=== PATIENT | female | born 1975 | race Caucasian/White ===

== ENCOUNTER 2018-08-01 21:31 | Observation (INO) | payer OTHER, SELFPAY ==
[2018-08-01 22:36] LABS: Absolute Lymphocytes (CBC) 0.9 K/uL (0.7-4.9); Basophils % 0.5 % (0-1.3); Eosinophils % 2.9 % (0-4.4); Hematocrit 41.4 % (36.0-45.0); Lymphocytes % 13.1 % (15.3-44.8); Monocytes % 13.1 % (3.3-12.3); RBC Red Blood Cell Count 4.54 M/uL (3.86-4.86)
[2018-08-01] MEDS ORDERED: NA CHLORIDE 0.9% 1,000 ML ONE (22:37)
[2018-08-01 22:56] LABS: ALT/SGPT 27 U/L (12-78); AST/SGOT 22 U/L (15-37); Albumin 3.6 g/dL (3.4-5.0); Alkaline Phosphatase 69 U/L (45-117); BUN Blood Urea Nitrogen 14 mg/dL (7-18); Bicarbonate 26 mmol/L (21-32); Bilirubin Direct < 0.1 mg/dL (0-0.2); Bilirubin Total 0.2 mg/dL (0.2-1.0); Glucose Level 99 mg/dL (74-106); Magnesium 1.9 mg/dL (1.8-2.4); NT PRO-BNP 70 pg/mL (<125); Potassium 3.8 mmol/L (3.5-5.1); Protein, Total 7.1 g/dL (6.4-8.2); Sodium Level 138 mmol/L (136-145); Troponin (Emerg Dept Use Only) < 0.02 ng/mL (0.0-0.045)
--- NOTE | 2018-08-01 23:37 | ER ---
Nurse's Notes [facility] Name: Lilly Glass Age: 42 yrs Sex: Female : 1975 Arrival Date: 08/01/2018 Time: 21:35 Bed 26 Private MD: Diagnosis: Dizziness and giddiness;Chest pain, unspecified;Essential (primary) hypertension Presentation: 08/01 21:35 Presenting complaint: Patient states: Reports dizziness, earache, sore throat, nasal aj congestion, and hot flashes that started yesterday. Started Z pack 2 days ago. Care prior to arrival: None. 21:35 Method Of Arrival: Ambulatory aj 21:35 Acuity: THEO 3 aj 21:45 Risk Assessment: Do you want to hurt yourself or someone else? Patient reports no ca1 desire to harm self or others. 21:45 Transition of care: patient was not received from another setting of care. Onset of ca1 symptoms was August 01, 2018. Initial Sepsis Screen: Does the patient meet any 2 criteria? No. Patient's initial sepsis screen is negative. Does the patient have a suspected source of infection? No. Patient's initial sepsis screen is negative. Triage Assessment: 21:37 General: Appears in no apparent distress. comfortable, Behavior is calm, cooperative, aj appropriate for age. Pain: Denies pain. EENT: Reports nasal congestion nasal discharge. Neuro: Level of Consciousness is awake, alert, obeys commands, Oriented to person, place, time, situation, Appropriate for age Gait is steady. Respiratory: Reports shortness of breath. Derm: Skin is intact, is healthy with good turgor, Skin is pink, warm \T\ dry. normal. 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 - Social history:: Smoking status: Patient/guardian denies using tobacco. - Family history:: not pertinent. - Ebola Screening: : Patient negative for fever greater than or equal to 101.5 degrees Fahrenheit, and additional compatible Ebola Virus Disease symptoms Patient denies exposure to infectious person Patient denies travel to an Ebola-affected area in the 21 days before illness onset. Screenin:40 Abuse screen: Denies threats or abuse. Denies injuries from another. Nutritional mg2 screening: No deficits noted. Tuberculosis screening: No symptoms or risk factors identified. Fall Risk IV access (20 points). Assessment: 22:41 General: Appears in no apparent distress. comfortable, Behavior is calm, cooperative. mg2 Pain: Denies pain. Neuro: Level of Consciousness is awake, alert, obeys commands, Oriented to person, place, time, situation. Neuro: Reports dizziness. Cardiovascular: Capillary refill < 3 seconds Patient's skin is warm and dry. Respiratory: Airway is patent Respiratory effort is even, unlabored, Respiratory pattern is regular, symmetrical. GI: No signs and/or symptoms were reported involving the gastrointestinal system. : No signs and/or symptoms were reported regarding the genitourinary system. EENT: No signs and/or symptoms were reported regarding the EENT system. Derm: Skin is intact, is healthy with good turgor, Skin is pink, warm \T\ dry. normal. Musculoskeletal: Circulation, motion, and sensation intact. Capillary refill < 3 seconds. 08/02 00:45 Reassessment: dr hernandez at bedside examining the patient. mg2 Vital Signs: 08/01 21:37 BP 157 / 98; Pulse 100; Resp 20; Temp 98.4; Pulse Ox 100% on R/A; Weight 61.23 kg; aj Height 5 ft. 2 in. (157.48 cm); 22:40 BP 142 / 82; Pulse 79; Resp 17 S; Pulse Ox 98% on R/A; ca1 08/02 00:14 BP 178 / 95; Pulse 85; Resp 14; Pulse Ox 99% on R/A; ca1 00:52 BP 157 / 85; Pulse 75; Resp 18; Temp 98.5; Pulse Ox 98% on R/A; Pain 0/10; mg2 01:09 BP 146 / 76; Pulse 89; Resp 18; Temp 98.2; Pulse Ox 100% on R/A; Pain 0/10; mg2 08/01 21:37 Body Mass Index 24.69 (61.23 kg, 157.48 cm) aj ED Course: 08/01 21:35 Patient arrived in ED. aj 21:36 Triage completed. aj 21:37 Arm band placed on left wrist. Patient placed in an exam room. aj 21:45 Patient has correct armband on for positive identification. Placed in gown. Bed in low ca1 position. Call light in reach. Side rails up X 1. operations controller on. Pulse ox on. NIBP on. 21:45 Warm blanket given. ca1 21:47 Cecille Byers RN is Primary Nurse. ca1 21:50 Ramesh Kim MD is Attending Physician. [facility] 22:16 No provider procedures requiring assistance completed. Inserted saline lock: 20 gauge mg2 in right hand, using aseptic technique. Blood collected. 22:19 XRAY Chest (1 view) In Process Unspecified. EDMS 22:43 Notified ED physician of a critical lab result(s). d -dimer of 804. 23:33 Thomas De Souza MD is Hospitalizing Provider. [facility] 08/02 00:43 Kulwinder Calvert RN is Primary Nurse. mg2 01:09 Patient admitted, IV remains in place. mg2 Administered Medications: 08/01 22:10 Drug: NS 0.9% 1000 ml Route: IV; Rate: 125 ml/hr; Site: right hand; ca1 08/02 01:10 Follow up: Response: No adverse reaction; IV Status: Infusion continued upon admission mg2 Outcome: 08/01 23:37 Decision to Hospitalize by Provider. [facility] 08/02 01:09 Admitted to Tele accompanied by tech, via wheelchair, room 406, with chart, Report mg2 called to INOCENTE Quintero Condition: stable Instructed on the need for admit, Demonstrated understanding of instructions. 01:26 Patient left the ED. mg2 Signatures: Dispatcher [employer] Raquel Cooley RN RN Ramesh Kim MD MD cha Chretien, Felicia, RN RN Kulwinder Calvert RN RN mg2 Cecille Byers RN RN [facility] Corrections: (The following items were deleted from the chart) 08/01 22:43 21:45 Patient has correct armband on for positive identification. Placed in gown. Bed ca1 in low position. Call light in reach. Side rails up X 1. ca1 22:44 21:45 Patient has correct armband on for positive identification. Placed in gown. Bed ca1 in low position. Call light in reach. Side rails up X 1. ca1 08/02 00:46 00:43 Reassessment: seen by dr hernandez. patient advised for admission. mg2 mg2
--- NOTE | 2018-08-01 23:38 | EDPHYS ---
Physician Documentation [facility] Name: Lilly Glass Age: 42 yrs Sex: Female : 1975 Arrival Date: 08/01/2018 Time: 21:35 Bed 26 Private MD: ED Physician Ramesh Kim HPI: 08/01 22:02 This 42 yrs old Female presents to ER via Ambulatory with complaints of manuela Dizziness. 22:02 The patient presents with dizziness. Onset: The symptoms/episode began/occurred 2 manuela day(s) ago. Context: occurred at home, just back from the [facility]. Modifying factors: The symptoms are alleviated by nothing, the symptoms are aggravated by nothing. Associated signs and symptoms: Pertinent positives: headache, shortness of breath. Severity of symptoms: At their worst the symptoms were mild in the emergency department the symptoms are unchanged. 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 - Social history:: Smoking status: Patient/guardian denies using tobacco. - Family history:: not pertinent. - Ebola Screening: : Patient negative for fever greater than or equal to 101.5 degrees Fahrenheit, and additional compatible Ebola Virus Disease symptoms Patient denies exposure to infectious person Patient denies travel to an Ebola-affected area in the 21 days before illness onset. ROS: 22:02 Constitutional: Negative for fever, chills, and weight loss, Eyes: Negative for injury, manuela pain, redness, and discharge, ENT: Negative for injury, pain, and discharge, Neck: Negative for injury, pain, and swelling, Cardiovascular: Negative for chest pain, palpitations, and edema, Abdomen/GI: Negative for abdominal pain, nausea, vomiting, diarrhea, and constipation, Back: Negative for injury and pain, : Negative for injury, bleeding, discharge, and swelling, MS/Extremity: Negative for injury and deformity, Skin: Negative for injury, rash, and discoloration, Neuro: Negative for headache, weakness, numbness, tingling, and seizure, Psych: Negative for depression, anxiety, suicide ideation, homicidal ideation, and hallucinations, Allergy/Immunology: Negative for hives, rash, and allergies, Endocrine: Negative for neck swelling, polydipsia, polyuria, polyphagia, and marked weight changes, Hematologic/Lymphatic: Negative for swollen nodes, abnormal bleeding, and unusual bruising. 22:02 Respiratory: Positive for cough, shortness of breath. Exam: 22:02 Constitutional: This is a well developed, well nourished patient who is awake, alert, manuela and in no acute distress. Head/Face: Normocephalic, atraumatic. Eyes: Pupils equal round and reactive to light, extra-ocular motions intact. Lids and lashes normal. Conjunctiva and sclera are non-icteric and not injected. Cornea within normal limits. Periorbital areas with no swelling, redness, or edema. ENT: Nares patent. No nasal discharge, no septal abnormalities noted. Tympanic membranes are normal and external auditory canals are clear. Oropharynx with no redness, swelling, or masses, exudates, or evidence of obstruction, uvula midline. Mucous membranes moist. Neck: Trachea midline, no thyromegaly or masses palpated, and no cervical lymphadenopathy. Supple, full range of motion without nuchal rigidity, or vertebral point tenderness. No Meningismus. Chest/axilla: Normal chest wall appearance and motion. Nontender with no deformity. No lesions are appreciated. Cardiovascular: Regular rate and rhythm with a normal S1 and S2. No gallops, murmurs, or rubs. Normal PMI, no JVD. No pulse deficits. Respiratory: Lungs have equal breath sounds bilaterally, clear to auscultation and percussion. No rales, rhonchi or wheezes noted. No increased work of breathing, no retractions or nasal flaring. Abdomen/GI: Soft, non-tender, with normal bowel sounds. No distension or tympany. No guarding or rebound. No evidence of tenderness throughout. Back: No spinal tenderness. No costovertebral tenderness. Full range of motion. Skin: Warm, dry with normal turgor. Normal color with no rashes, no lesions, and no evidence of cellulitis. MS/ Extremity: Pulses equal, no cyanosis. Neurovascular intact. Full, normal range of motion. Neuro: Awake and alert, GCS 15, oriented to person, place, time, and situation. Cranial nerves II-XII grossly intact. Motor strength 5/5 in all extremities. Sensory grossly intact. Cerebellar exam normal. Normal gait. Psych: Awake, alert, with orientation to person, place and time. Behavior, mood, and affect are within normal limits. 22:02 Musculoskeletal/extremity: Extremities: all appear grossly normal, with no appreciated pain with palpation, ROM: no acute changes, intact in all extremities, full active range of motion, full passive range of motion, Circulation is intact in all extremities. Sensation intact. Compartment Syndrome exam of affected extremity: is normal. DVT Exam: No signs of deep vein thrombosis. no pain, no swelling, no tenderness, negative Homans' sign noted on exam, no appreciated bluish discoloration, no erythema, no increased warmth. Vital Signs: 21:37 BP 157 / 98; Pulse 100; Resp 20; Temp 98.4; Pulse Ox 100% on R/A; Weight 61.23 kg; aj Height 5 ft. 2 in. (157.48 cm); 22:40 BP 142 / 82; Pulse 79; Resp 17 S; Pulse Ox 98% on R/A; ca1 08/02 00:14 BP 178 / 95; Pulse 85; Resp 14; Pulse Ox 99% on R/A; ca1 00:52 BP 157 / 85; Pulse 75; Resp 18; Temp 98.5; Pulse Ox 98% on R/A; Pain 0/10; mg2 01:09 BP 146 / 76; Pulse 89; Resp 18; Temp 98.2; Pulse Ox 100% on R/A; Pain 0/10; mg2 08/01 21:37 Body Mass Index 24.69 (61.23 kg, 157.48 cm) MDM: 08/01 21:51 Patient medically screened. [facility] 22:05 Data reviewed: vital signs, nurses notes, lab test result(s), EKG, radiologic studies. [facility] 08/01 21:59 Order name: Basic Metabolic Panel [facility] 08/01 21:59 Order name: CBC with Diff [facility] 08/01 21:59 Order name: LFT's [facility] 08/01 21:59 Order name: Magnesium; Complete Time: 23:25 [facility] 08/01 21:59 Order name: NT PRO-BNP; Complete Time: 23:25 [facility] 08/01 21:59 Order name: Troponin (emerg Dept Use Only); Complete Time: 23:25 [facility] 08/01 21:59 Order name: TSH; Complete Time: 23:25 [facility] 08/01 22:00 Order name: D-Dimer; Complete Time: 23:25 [facility] 08/01 22:03 Order name: Basic Metabolic Panel; Complete Time: 23:25 [facility] 08/01 22:03 Order name: CBC with Automated Diff; Complete Time: 23:25 [facility] 08/01 22:03 Order name: Liver (Hepatic) Function; Complete Time: 23:25 [facility] 08/02 00:32 Order name: Urine Dipstick--Ancillary (enter results) [facility] 08/02 01:09 Order name: Urine Drug Screen [facility] 08/02 01:10 Order name: Urine Dipstick-Ancillary [facility] 08/01 21:59 Order name: XRAY Chest (1 view) [facility] 08/01 21:59 Order name: EKG; Complete Time: 22:04 [facility] 08/01 21:59 Order name: Cardiac monitoring; Complete Time: 22:17 [facility] 08/01 21:59 Order name: EKG - Nurse/Tech; Complete Time: 22:17 [facility] 08/01 21:59 Order name: IV Saline Lock; Complete Time: 22:17 [facility] 08/01 21:59 Order name: Labs collected and sent; Complete Time: 22:17 [facility] 08/01 21:59 Order name: O2 Per Protocol; Complete Time: 22:17 [facility] 08/01 21:59 Order name: O2 Sat Monitoring; Complete Time: 22:17 [facility] 08/01 21:59 Order name: Urine Dipstick-Ancillary (obtain specimen); Complete Time: 00:44 [facility] Administered Medications: 22:10 Drug: NS 0.9% 1000 ml Route: IV; Rate: 125 ml/hr; Site: right hand; ca1 08/02 01:10 Follow up: Response: No adverse reaction; IV Status: Infusion continued upon admission mg2 Disposition: 08/01/18 23:37 Hospitalization ordered by Thomas De Souza for Observation. Preliminary diagnosis are Dizziness and giddiness, Chest pain, unspecified, Essential (primary) hypertension. - Bed requested for Telemetry/MedSurg (observation). - Status is Observation. mg2 - Condition is Stable. - Problem is new. - Symptoms have improved. UTI on Admission? No Signatures: Dispatcher [employer] [facility] Raquel Cardozo RN RN aj Anderson, Corey, MD MD cha Gardose, Michele, RN RN mg2 Robles, Autumn ar5 Cecille Byers RN RN ca1 Corrections: (The following items were deleted from the chart) 00:55 08/01 23:37 Hospitalization Ordered by Thomas De Souza MD for Observation. Preliminary ar5 diagnosis is Dizziness and giddiness; Chest pain, unspecified; Essential (primary) hypertension. Bed requested for Telemetry/MedSurg (observation). Status is Observation. Condition is Stable. Problem is new. Symptoms have improved. UTI on Admission? No. manuela 08/02 01:26 00:55 08/01/2018 23:37 Hospitalization Ordered by Thomas De Souza MD for Observation. mg2 Preliminary diagnosis is Dizziness and giddiness; Chest pain, unspecified; Essential (primary) hypertension. Bed requested for Telemetry/MedSurg (observation). Status is Observation. Condition is Stable. Problem is new. Symptoms have improved. UTI on Admission? No. ar5
[2018-08-02] MEDS ORDERED: ONDANSETRON 4 MG/2 ML VIAL IV PRN (00:49)
[2018-08-02] MEDS ORDERED: METOPROLOL TAR 25 MG TAB PO SCH ×2 (00:52→09:00)
[2018-08-02 01:08] LABS: Urine Blood NEGATIVE (NEG); Urine Glucose NEGATIVE (NEG); Urine Protein NEGATIVE (NEG); Urine Specific Gravity 1.015 (1.005-1.030)
--- NOTE | 2018-08-02 01:10 | P.HP ---
Certification for Inpatient Patient admitted to: Observation With expected LOS: <2 Midnights Practitioner: I am a practitioner with admitting privileges, knowledge of patient current condition, hospital course, and medical plan of care. Services: Services provided to patient in accordance with Admission requirements found in Title 42 Section 412.3 of the Code of Federal Regulations Patient History Date of Service: 08/02/18 Reason for admission: dyspnea, chest pain History of Present Illness: Ms Glass is a 42 years old woman who has benign medical history, however, since 1 month ago, she start recurrent episodes of chest pain associated with SOB, she exercise several times a week and use to drink multivitamin drinks (MCGRATH) , which was discontinued when her symptoms started. She just return from [facility] trip. Tonight, she had again SOB associated with chest pain. The pain is on the left side of the chest, tight, lasting for a couple of seconds. She denied nausea, vomiting, dizziness or diaphoresis. She also said that has been hypertensive and tachycardic for the last month. At arrival her BP was 157/98 HR 100, O2 sat 100% on RA. Lab work unremarkable except D-Dimer which was elevated 804. At my encounter she was in non-distress. Home medications list reviewed: Yes - Past Medical/Surgical History Past Medical History: Reviewed- Non-Contributory -: Hysterectomy - Family History Family History: Reviewed- Non-Contributory - Social History Smoking Status: Never smoker Alcohol use: Yes CD- Drugs: No Caffeine use: Yes Place of Residence: Home Review of Systems 10-point ROS is otherwise unremarkable Physical Examination - Physical Exam General: Alert, In no apparent distress HEENT: Atraumatic, PERRLA, Mucous membr. moist/pink, EOMI, Sclerae nonicteric Neck: Supple, 2+ carotid pulse no bruit, No LAD, Without JVD or thyroid abnormality Respiratory: Clear to auscultation bilaterally, Normal air movement Cardiovascular: Regular rate/rhythm, Normal S1 S2 Gastrointestinal: Normal bowel sounds, No tenderness Musculoskeletal: No tenderness Integumentary: No rashes Neurological: Normal gait, Normal speech, Normal strength at 5/5 x4 extr, Normal tone, Normal affect Lymphatics: No axilla or inguinal lymphadenopathy - Studies Laboratory Data (last 24 hrs) 08/01/18 22:15: WBC 7.2, Hgb 13.7, Hct 41.4, Plt Count 170 06/19/19 22:15: Sodium 138, Potassium 3.8, BUN 14, Creatinine 0.89, Glucose 99, Magnesium 1.9, Total Bilirubin 0.2, AST 22, ALT 27, Alkaline Phosphatase 69 Assessment and Plan - Problems (Diagnosis) (1) Chest pain Current Visit: Yes Status: Acute Qualifiers: Chest pain type: unspecified Qualified Code(s): R07.9 - Chest pain, unspecified (2) SOB (shortness of breath) Current Visit: Yes Status: Acute (3) HTN (hypertension) Current Visit: Yes Status: Acute Qualifiers: Hypertension type: essential hypertension Qualified Code(s): I10 - Essential (primary) hypertension - Plan The patient will be admitted to the hospital due to chest pain associated with dyspnea. Chest pain is atypical per nature, initial trop I is negative, EKG sinus rhythm without ST-T anormalities. I doubt the patient has PE, since clinical presentation is not typical for it, however, since she is allergic to iodine and D-Dimer is elevated, she will have a V/Q scan in AM. Will order ECHO. start beta rukhsana for hypertension. - Advance Directives Does patient have a Living Will: No Does patient have a Durable POA for Healthcare: No - Code Status/Comfort Care Code Status Assessed: Yes Code Status: Full Code
[2018-08-02] MEDS ORDERED: ACETAMINOPHEN 500 MG TAB PO PRN (02:03)
[2018-08-02 02:07] VITALS: BMI 24.0
[2018-08-02 02:56] VITALS: O2SAT 100
[2018-08-02 07:34] LABS: Barbiturates NEGATIVE (NEGATIVE); Benzodiazepines NEGATIVE (NEGATIVE); Cocaine NEGATIVE (NEGATIVE); METHAMPHETAM NEGATIVE (NEGATIVE); Methadone NEGATIVE (NEGATIVE); Opiates NEGATIVE (NEGATIVE); Phencyclidine NEGATIVE (NEGATIVE); THC Cannibis NEGATIVE (NEGATIVE)
--- NOTE | 2018-08-02 08:07 | RAD REPORT ---
EXAM DESCRIPTION: NM - Vent Perfusion VQ Scan - 08/02/2018 7:49 am CLINICAL HISTORY: Dyspnea, chest pain, elevated D-dimer COMPARISON: Chest film August 01 TECHNIQUE: The patient was administered 20.2 mCi Xenon 133 gas with posterior projection inspiration , equilibrium, and washout views obtained. The patient was then administered 7.5 mCi Tc-99m MAA label ed RBCs followed by standard 8 view protocol. FINDINGS: There is good distribution of the Xenon with no ventilation defects identified. Mild diffu se air trapping seen. Perfusion images show no defects suspicious for pulmonary emboli. IMPRESSION: No evidence for pulmonary embolic disease. Mild diffuse air trapping. No ventilation defects.
--- NOTE | 2018-08-02 08:35 | RAD REPORT ---
EXAM DESCRIPTION: RAD - Chest Single View - 08/01/2018 10:18 pm CLINICAL HISTORY: Cough COMPARISON: None. TECHNIQUE: AP portable chest image was obtained 2218 hours . FINDINGS: Lungs are clear. Heart and vasculature are normal. No measurable pleural effusion and no p neumothorax. No acute bony abnormality seen. No acute aortic findings suspected. IMPRESSION: No acute cardiopulmonary process.
[2018-08-02] MEDS ORDERED: ENOXAPARIN 40 MG/0.4 ML SQ SCH (09:00)
--- NOTE | 2018-08-02 10:41 | EKG ---
Test Date: 2018-08-01 Test Time: 22:09:20 Vice President Payment: MG MEASUREMENT RESULTS: Intervals: Rate: 83 GA: 162 QRSD: 76 QT: 348 QTc: 408 [place]: P: 69 GA: 162 QRS: 76 T: 39 INTERPRETIVE STATEMENTS: Normal sinus rhythm Normal ECG No previous ECG available for comparison Electronically Signed On 08-02-18 10:41:16 CDT by Nithin Liu
--- NOTE | 2018-08-02 11:23 | ECHO ---
HEIGHT: 5 ft 3 in WEIGHT: 135 lb 6.4 oz DATE OF STUDY: 08/02/[address]: Thomas Gasca MD 2-DIMENSIONAL: YES M.MODE: YES DOPPLER: YES COLOR FLOW: YES TDS: NO PORTABLE: NO DEFINITY: NO BUBBLE STUDY: NO DIAGNOSIS: DYSPNEA CARDIAC HISTORY: CATHERIZATION: NO SURGERY: NO PROSTHETIC VALVE: NO PACEMAKER: NO MEASUREMENTS (cm) DIASTOLIC (NORMALS) SYSTOLIC (NORMALS) IVSd 0.9 (0.6-1.2) LA Diam 2.3 (1.9-4.0) LVEF 67% LVIDd 3.8 (3.5-5.7) LVIDs 2.4 (2.0-3.5) %FS 37% LVPWd 1.0 (0.6-1.2) Ao Diam 2.3 (2.0-3.7) 2 DIMENSIONAL ASSESSMENT: RIGHT ATRIUM: NORMAL LEFT ATRIUM: NORMAL RIGHT VENTRICLE: NORMAL LEFT VENTRICLE: NORMAL TRICUSPID VALVE: NORMAL MITRAL VALVE: NORMAL PULMONIC VALVE: NORMAL AORTIC VALVE: NORMAL PERICARDIAL EFFUSION: NONE AORTIC ROOT: NORMAL LEFT VENTRICULAR WALL MOTION: NORMAL DOPPLER/COLOR FLOW: MILD TRICUSPID REGURGITATION. COMMENTS: MILD TRICUSPID REGURGITATION. NORMAL RIGHT VENTRICULAR SYSTOLIC PRESSURE. NORMAL LEFT VENTRICULAR EJECTION FRACTION AND SIZE. NO WALL MOTION ABNORMALITY. NO EFFUSION. TECHNOLOGIST: Kenia MORENO
--- NOTE | 2018-08-02 12:16 | P.SSS ---
Patient History Date of Service: 08/02/18 Reason for admission: dyspnea, chest pain History of Present Illness: Ms Glass is a 42 years old woman who has benign medical history, however, since 1 month ago, she start recurrent episodes of chest pain associated with SOB, she exercise several times a week and use to drink multivitamin drinks (MCGRATH) , which was discontinued when her symptoms started. She just return from [facility] trip. Tonight, she had again SOB associated with chest pain. The pain is on the left side of the chest, tight, lasting for a couple of seconds. She denied nausea, vomiting, dizziness or diaphoresis. She also said that has been hypertensive and tachycardic for the last month. At arrival her BP was 157/98 HR 100, O2 sat 100% on RA. Lab work unremarkable except D-Dimer which was elevated 804. At my encounter she was in non-distress. Allergies Iodinated Contrast- Oral and IV Dye Allergy (Verified 08/02/18 01:41) Anaphylaxis Home Medications: Azithromycin [Zithromax Tri-Robert] 500 mg PO DAILY 08/02/18 Escitalopram [Lexapro*] 5 mg PO DAILY 08/02/18 Metoprolol Tartrate [Lopressor*] 25 mg PO DAILY #30 tab 08/02/18 - Past Medical/Surgical History Has patient received pneumonia vaccine in the past: No Diabetic: No Past Medical History: Patient denies medical history -: Hysterectomy, partial -: L kidney nonfunctional - Family History Family History: Reviewed- Non-Contributory - Social History Smoking Status: Never smoker Alcohol use: No CD- Drugs: No Caffeine use: No Place of Residence: Home Review of Systems 10-point ROS is otherwise unremarkable Physical Examination - Vital Signs Temperature: 97.6 F Blood Pressure: 144/85 Pulse: 70 Respirations: 20 Pulse Ox (%): 98 - Physical Exam General: Alert, In no apparent distress HEENT: Atraumatic, PERRLA, Mucous membr. moist/pink, EOMI, Sclerae nonicteric Neck: Supple, 2+ carotid pulse no bruit, No LAD, Without JVD or thyroid abnormality Respiratory: Clear to auscultation bilaterally, Normal air movement Cardiovascular: Regular rate/rhythm, Normal S1 S2 Gastrointestinal: Normal bowel sounds, No tenderness Musculoskeletal: No tenderness Integumentary: No rashes Neurological: Normal gait, Normal speech, Normal strength at 5/5 x4 extr, Normal tone, Normal affect Lymphatics: No axilla or inguinal lymphadenopathy - Studies Laboratory Data (last 24 hrs) 08/01/18 22:15: WBC 7.2, Hgb 13.7, Hct 41.4, Plt Count 170 08/01/18 22:15: Sodium 138, Potassium 3.8, BUN 14, Creatinine 0.89, Glucose 99, Magnesium 1.9, Total Bilirubin 0.2, AST 22, ALT 27, Alkaline Phosphatase 69 - Diagnosis (Problem(s)) (1) HTN (hypertension) Current Visit: Yes Status: Chronic Qualifiers: Hypertension type: essential hypertension Qualified Code(s): I10 - Essential (primary) hypertension (2) Chest pain Current Visit: Yes Status: Resolved Qualifiers: Chest pain type: unspecified Qualified Code(s): R07.9 - Chest pain, unspecified (3) SOB (shortness of breath) Current Visit: Yes Status: Resolved Treatment Summary: Overall during the hospital stay patient remained stable Patient was initially admitted to the hospital for shortness of breath and chest pain which was left-sided. Patient had an echocardiogram done here in the hospital which was within normal limits. Initial concern was for DVT versus PE. V/Q scan was negative for PE. Ultrasound of bilateral lower extremities were negative for DVTs as well. Patient's shortness of breath or chest pain was most likely secondary to anxiety and patient was asked to follow up with primary care provider in about 1-2 days post discharge. Patient was also asked to take metoprolol 25 mg daily for her high blood pressure. Patient has several cyst on the left side over the per patient. Concerning possibly for polycystic kidney disease. Patient was again asked to follow up with primary care provider to assess further for her essential hypertension and the need to change any medication if needed. Patient demonstrated understanding and thus was discharged home under stable condition. - Disposition Disposition: ROUTINE DISCHARGE Condition: GOOD Patient Discharge Instructions: Please here with PCP is in about 1-2 days post discharge. You were diagnosed with hypertension and will need to be started on new medication metoprolol Diet: Regular Activity: Ad jennifer
--- NOTE | 2018-08-02 15:26 | RAD REPORT ---
EXAM DESCRIPTION: US - Extrem Venous W Compress Chip - 08/02/2018 3:05 pm CLINICAL HISTORY: rule out DVT for lower extremeties Bilateral leg edema and swelling. COMPARISON: Vent Perfusion VQ Scan dated 08/02/2018; Chest Single View dated 08/01/2018 TECHNIQUE: Real-time sonographic interrogation of the left and right lower extremity deep venous sys tems was performed. FINDINGS: Normal compressibility, flow augmentation, phasic flow and spontaneous flow is identified in both the left and right lower extremity deep venous systems. IMPRESSION: No sonographic evidence of left or right lower extremity deep venous thrombosis.
[2018-08-02 16:01] VITALS: BP 127/87; TEMP 97.7
== END 2018-08-02 15:58 | disposition home or self-care (01) ==
LOC: ER 21:31 → 4TH 08-02 01:11
PROVIDERS: ADMIT Internal Medicine; ATTEND Family Medicine
DX: I10 Essential (primary) hypertension (principal); R07.9 Chest pain, unspecified; R06.02 Shortness of breath
CPT/HCPCS: 36415; 71045; 78582; 80048; 80076; 80307; 81003; 83735; 83880; 84443; 84484; 85025; 85379; 93005; 93306; 93970; 96360; 96361; 99285; A9540; A9558; G0378; J1650; J7030

== ENCOUNTER 2020-01-26 09:53 | Emergency (ER) | payer BC, OTHER ==
--- OUTSIDE RECORDS SUMMARY | 2020-01-26 09:55 | XMS REPORT | Continuity of Care Document ---
:1975 Author Organization [facility] t Address [address] [place] [address] Care Team Providers Name Role Phone Etienne LEIGH Primary Care Physician Lowell LEIGH, S. Attending Clinician Lowell LEIGH R. Attending Clinician Payers Payer Name Policy Type Policy Effective Date Expiration Date Sour Number [id number] CHOICE 2019 [place] PPO/FEDERAL 001 00:00:00 [employer] EM[employer] PPOxxxxxxxxxxx1 -Pr esentPPO Problems This patient has no known problems. Allergies, Adverse Reactions, Alerts This patient has no known allergies or adverse reactions. Social History Social Habit Start Date Stop Date Quantity Comments Source Sex Assigned At Jennifer ston [facility] Medications This patient has no known medications. Procedures Procedure Date / Time Performed Performing Clinician Luz Marina e US RENAL 2019-09-16 10:10:00 Ed Nelson [facility] Plan of Care Planned Activity Planned Date Details Comments Source Future Scheduled 2019-09-14 INFLUENZA VACCINE [place] [facility] Test 00:00:00 [code = INFLUENZA VACCINE] Future Scheduled 1995-11-10 Screening for [facility] thodist Test 00:00:00 malignant neoplasm of cervix (procedure) [code = 176844913] Encounters Start End Encounter Admission Attending Care Care Encounter Source Date/Time Date/Time Type Type Clinicians Facility Department ID 2019-09-16 2019-09-16 Outpatient LOWELL [facility] [id number] Kofi 00:00:00 00:00:00 JOSE [address] Results Test Test Test Results Result Source Description Time Comments Comments US Renal 2019-09- Interface, Radiology [facility] 03 Results Incoming - Method ist 11:24:41 09/16/2019 11:27 AM CDTEXAMINATION: US RENALCLINICAL HISTORY: N20.0 Calculus of kidney, N27.9 Small kidney unspecified, small kidney NephrolithiasisTECHNIQUE: Sonographic imaging over the kidneys was performed. COMPARISON: None.FINDINGS:1.The right kidney is normal size measuring 11.5 cm in long axis. The kidney has normal echogenicity. Vascular flow is unremarkable. There is no evidence of hydronephrosis, perinephric fluid, solid mass, or calculus.2.The left kidney measures 12.7 cm in long axis. The left renal cortex is not well-visualized, and is nearly completely replaced by cystic spaces. It is unclear what component is due to renal cysts versus hydronephrosis.3.The bladder is unremarkable. No left ureteral jet was identified.IMPRESSION:The left kidney is nearly completely replaced with cystic spaces, unclear what component is due to true cysts versus dilated calyces. No left ureteral jet was identified over the course of 90 seconds.[id number]
--- OUTSIDE RECORDS SUMMARY | 2020-01-26 09:55 | XMS REPORT | Clinical Summary ---
:1975 Author Organization [facility] Address [address] [place] [id number] Care Team Providers Name Role Phone Pam Clifton MD Primary Care Provider [phone] Allergies Not on File Medications Not on file Active Problems Not on file Encounters Date Type Specialty Care Team Description 09/16/2019 Hospital Encounter Radiology Tamy Nelson, Nephr olithiasis; Small kidney 09/16/2019 Travel 08/13/2019 Transcribe Orders Access Ed Nelson Nephr olithiasis (Primary Dx); Small kidney 08/13/2019 Travel 04/05/2019 Transcribe Orders Access Tamy Nelson Small kidney (Primary Dx) after 01/25/2019 Social History Tobacco Use Types Packs/Day Years Used Date Never Assessed Sex Assigned at Date Recorded Not on file Last Filed Vital Signs Not on file Plan of Treatment Health Maintenance Due Date Last Done Comments CERVICAL CANCER SCREENING 11/10/1995 INFLUENZA VACCINE 09/14/2019 Procedures Procedure Name Priority Date/Time Associated Diagnosis Comme nts US RENAL Routine 09/16/2019 10:10 AM Nephrolithia sis Results for this CDT Small kidney procedure are i n the results section . after 01/25/2019 Results US Renal (09/16/2019 10:10 AM CDT) Specimen Narrative Performed At EXAMINATION: US RENAL [facility] CLINICAL HISTORY: N20.0 Calculus of kidney, N27.9 Sm all kidney unspecified, small kidney Nephrolith iasis TECHNIQUE: Sonographic imaging over the kidneys was performed. COMPARISON: None. FINDINGS: 1.The right kidney is normal size measuring 11.5 cm in long axis. The kidney has normal echogenicity. Vascular flow is unrem arkable. There is no evidence of hydronephrosis, perinephric fluid, so lid mass, or calculus. 2.The left kidney measures 12.7 cm in long axis. The l eft renal cortex is not well-visualized, and is nearly completely repla brenda by cystic spaces. It is unclear what component is due to renal c ysts versus hydronephrosis. 3.The bladder is unremarkable. No left u reteral jet was identified. IMPRESSION: The left kidney is nearly completely replaced with cys tic spaces, unclear what component is due to true cysts versus dil ated calyces. No left ureteral jet was identified over th e course of 90 seconds. [facility]-[id number] Procedure Note Hm Interface, Radiology Results Incoming - 09/16/2019 11:27 AM CDT EXAMINATION: US RENAL CLINICAL HISTORY: N20.0 Calculus of kid danielle, N27.9 Small kidney unspecified, small kidney Nephrolithiasis TECHNIQUE: Sonographic imaging over the kidneys was performed. COMPARISON: None. FINDINGS: 1.The right kidney is normal size measur ing 11.5 cm in long axis. The kidney has normal echogenicity. Vascular flow is unremarkable. There is no evidence of hydronephrosis, perinephric fluid, solid mass, or calculus. 2.The left kidney measures 12.7 cm in lo ng axis. The left renal cortex is not well-visualized, and is nearly completely replaced by cystic spaces. It is unclear what component is due to renal cysts versus hydronephrosis. 3.The bladder is unremarkable. No left u reteral jet was identified. IMPRESSION: The left kidney is nearly completely rep laced with cystic spaces, unclear what component is due to true cysts versus dilated calyces. No left ureteral jet was identified over the course of 90 seconds. [facility]-[id number] Performing Organization Address City/State/ZIP Code Phon e Number [facility] [address] [place] [address] after 01/25/2019 Advance Directives For more information, please contact: [phone] Type Date Recorded Patient Home Office Claim Specialist Explanati on Advance Directives, Living Will and Medical Power of Senior Product Development Manager
--- OUTSIDE RECORDS SUMMARY | 2020-01-26 09:55 | XMS REPORT | Summary of Care ---
:1975 Author Organization [facility] Address [address] [place] [address] Care Team Providers Name Role Phone Pcp, Patient Does Not Have A Primary Care Provider +[phone] 0-0000 Encounter Details Date Type Department Care Team Description 01/25/2020 Letter (Out) [facility] MyCsunilt Message s Doctor Unassigned, No [address] [facility] [place] [phone] [facility] [phone] [place] [address] Allergies Not on Filedocumented as of this encounter (statuses as of 01/25/2020) Medications Not on filedocumented as of this encounter (statuses as of 01/25/2020) Active Problems Not on filedocumented as of this encounter (statuses as of 01/25/2020) Social History Tobacco Use Types Packs/Day Years Used Date Never Assessed Sex Assigned at Date Recorded Not on file documented as of this encounter Last Filed Vital Signs Not on filedocumented in this encounter Plan of Treatment Health Maintenance Due Date Last Done Comments Depression Screening 1986 DTaP,Tdap,and Td Vaccines (1 - 1993 Tdap) PAP SMEAR 11/10/1995 Breast Cancer Screening 2014 (MAMMOGRAM) INFLUENZA VACCINE (#1) 2019 Colorectal Cancer Screening 2024 PNEUMOCOCCAL 0-64 YEARS COMBINED Aged Out No longer eligible based on SERIES patient's age to complete this topic documented as of this encounter Results Not on filedocumented in this encounter Insurance Payer Benefit Plan / Group Subscriber ID Effective Dates Phone Address Type AETNA AETNA CHOICE POS II [id number] 2020-Present POS documented as of this encounter
[2020-01-26] MEDS ORDERED: ONDANSETRON 4 MG/2 ML VIAL ONE ×2 (10:57→12:27)
[2020-01-26] MEDS ORDERED: METOCLOPRAMIDE 10 MG/2mL INJ ONE (10:57)
[2020-01-26] MEDS ORDERED: NA CHLORIDE 0.9% 0 ML ONE ×2 (10:57→12:28)
[2020-01-26] MEDS ORDERED: DIPHENHYDRAMINE 50 MG/ML VIAL ONE (10:57)
--- NOTE | 2020-01-26 11:00 | RAD REPORT ---
EXAM DESCRIPTION: CT - Head Brain Wo Cont - 01/26/2020 10:49 am CLINICAL HISTORY: HEADACHE COMPARISON: <Comparisons> TECHNIQUE: Axial 5 mm thick images of the head were obtained without IV contrast. All CT scans are performed using dose optimization technique as appropriate and may include automated exposure control or mA/KV adjustment according to patient size. FINDINGS: No intracranial hemorrhage, mass, edema or shift of mid-line structures. No acute infarcti on changes seen. No abnormal extra-axial fluid collections. Ventricles are normal. Mastoid air cells and visualized portions of the paranasal sinuses are clear. No acute bony findings. IMPRESSION: Negative non-contrast CT head examination.
[2020-01-26 11:03] LABS: Urine Blood TRACE (NEG); Urine Glucose NEGATIVE (NEG); Urine Protein NEGATIVE (NEG); Urine Specific Gravity 1.015 (1.005-1.030)
[2020-01-26 11:22] LABS: Absolute Lymphocytes (CBC) 1.3 K/uL (0.7-4.9); Basophils % 0.7 % (0-1.3); Hematocrit 43.4 % (36.0-45.0); Lymphocytes % 20.9 % (15.3-44.8); MPV 8.6 fL (7.6-11.3); RBC Red Blood Cell Count 4.86 M/uL (3.86-4.86)
[2020-01-26] MEDS ORDERED: NA CHLORIDE 0.9% 1,000 ML ONE (11:25)
[2020-01-26 11:27] LABS: Protime INR 1.33
[2020-01-26 11:36] LABS: Potassium 3.8 mmol/L (3.5-5.1)
[2020-01-26] MEDS ORDERED: dexAMETHasone 10 MG/ML VIAL ONE (12:27)
[2020-01-26] MEDS ORDERED: NA CHLORIDE 0.9% 100 ML ONE (12:28)
--- NOTE | 2020-01-26 12:55 | ER ---
Nurse's Notes [facility] Name: Lilly Glass Age: 44 yrs Sex: Female : 1975 Arrival Date: 01/26/2020 Time: 09:54 Bed 15 Private MD: Diagnosis: Headache Presentation: 01/25 10:04 Chief complaint: Patient states: "I've had a headache for 7 days now, I've been taking aa5 Eliquis for almost 2 days now for a clot in my leg, my blood pressure has been high around 155/[address] Perez changed my medicine from metoprolol to amlodipine/benazepril on Monday and now my blood pressure has been normal but I don't feel better". Pt reports she is also taking Augmentin, pt states "I told the doctor maybe it was a sinus infection and he gave me antibiotics". 10:04 Coronavirus screen: headache. Ebola Screen: Patient negative for fever greater than or aa5 equal to 101.5 degrees Fahrenheit, and additional compatible Ebola Virus Disease symptoms. Initial Sepsis Screen: Does the patient meet any 2 criteria? No. Patient's initial sepsis screen is negative. Does the patient have a suspected source of infection? No. Patient's initial sepsis screen is negative. Risk Assessment: Do you want to hurt yourself or someone else? Patient reports no desire to harm self or others. Onset of symptoms was January 2020. 10:04 Method Of Arrival: Ambulatory aa5 10:04 Acuity: THEO 2 aa5 Historical: - Allergies: 10:06 Iodinated Contrast Media - IV Dye; aa5 11:32 Benadryl IV; ca1 - Home Meds: 10:06 Eliquis oral oral [Active]; Augmentin Oral [Active]; amlodipine-benazepril 10-20 mg aa5 oral cap [Active]; - PMHx: 10:06 PVCs; Hypertension; "only have 1 functioning kidney"; DVT; aa5 - Social history:: Smoking status: unknown. Screenin:10 Abuse screen: Denies threats or abuse. Denies injuries from another. Nutritional ca1 screening: No deficits noted. Tuberculosis screening: No symptoms or risk factors identified. Fall Risk IV access (20 points). Assessment: 10:10 General: Appears in no apparent distress. uncomfortable, Behavior is calm, cooperative, ca1 appropriate for age. Pain: Complains of pain in forehead and top of head Pain currently is 8 out of 10 on a pain scale. Pain began 7 days. Neuro: Level of Consciousness is awake, alert, obeys commands, Oriented to person, place, time, situation. Cardiovascular: Heart tones S1 S2 present Capillary refill < 3 seconds Patient's skin is warm and dry. Respiratory: Airway is patent Respiratory effort is even, unlabored, Respiratory pattern is regular, symmetrical, Breath sounds are clear bilaterally. GI: Abdomen is flat, non-distended, Bowel sounds present X 4 quads. Abd is soft and non tender X 4 quads. : No signs and/or symptoms were reported regarding the genitourinary system. EENT: No signs and/or symptoms were reported regarding the EENT system. Derm: Skin is intact, is healthy with good turgor, Skin is pink, warm \\T\\ dry. Musculoskeletal: Circulation, motion, and sensation intact. Capillary refill < 3 seconds. 11:06 Reassessment: Gave Benadryl IV slow. Pt HR went up to 152, pt states, "I am not feeling ca1 good, I feel my heart is racing. This happened to me before when I was given Iodine IV and they gave me Benadryl, I thought it was the IV contrast". Notified provider. NS 1L bolus order an EKG done. 12:03 Reassessment: Patient appears in no apparent distress at this time. Patient and/or ca1 family updated on plan of care and expected duration. Pain level reassessed. Patient is alert, oriented x 3, equal unlabored respirations, skin warm/dry/pink. 12:30 General: Appears in no apparent distress. uncomfortable, Behavior is cooperative, jd3 appropriate for age, anxious, Denies fever, feeling ill, fatigue, chills. Pain: Complains of pain in frontal Pain currently is 8 out of 10 on a pain scale. Pain began gradually, 2-3 days ago. Neuro: Level of Consciousness is awake, alert, obeys commands, Oriented to person, place, time, situation, Speech is normal, Pupils are PERRLA. Cardiovascular: Heart tones S1 S2 present Capillary refill < 3 seconds in bilateral fingers Patient's skin is warm and dry. Respiratory: Airway is patent Respiratory effort is even, unlabored, Respiratory pattern is regular, symmetrical, Breath sounds are clear bilaterally. GI: Abdomen is flat, non-distended, Bowel sounds present X 4 quads. Abd is soft and non tender. : No signs and/or symptoms were reported regarding the genitourinary system. EENT: No signs and/or symptoms were reported regarding the EENT system. Derm: Skin is intact, is healthy with good turgor, Skin is flushed. Musculoskeletal: Circulation, motion, and sensation intact. Capillary refill < 3 seconds. Vital Signs: 10:04 BP 116 / 69; Pulse 84; Resp 16 S; Temp 98.8(O); Pulse Ox 100% on R/A; aa5 11:06 BP 159 / 84; Pulse 152; Resp 20; Pulse Ox 100% on R/A; ca1 11:30 BP 113 / 58; Pulse 94; Resp 16 S; Pulse Ox 100% on R/A; ca1 11:45 BP 101 / 55; Pulse 93; Resp 16 S; Pulse Ox 100% on R/A; ca1 12:00 BP 110 / 60; Pulse 91; Resp 16 S; Pulse Ox 100% on R/A; ca1 13:00 BP 103 / 57; Pulse 86; Resp 16; Pulse Ox 100% on R/A; zb ED Course: 09:54 Patient arrived in ED. ag5 10:04 Arm band placed on Patient placed in an exam room, on a stretcher. aa5 10:06 Cecille Byers, RN is Primary Nurse. ca1 10:10 Patient has correct armband on for positive identification. Placed in gown. Bed in low ca1 position. Call light in reach. Side rails up X2. groundwater monitoring technician on. Pulse ox on. NIBP on. Warm blanket given. 10:10 Door closed. Visitors limited. Lights dimmed. ca1 10:12 Ramesh Cross PA is PHCP. cp 10:12 Ramesh Kim MD is Attending Physician. cp 10:23 Triage completed. aa5 10:48 CT Head Brain wo Cont In Process Unspecified. EDMS 10:56 Initial lab(s) drawn, by me, sent to lab. Inserted saline lock: 20 gauge in right ca1 antecubital area, using aseptic technique. Blood collected. 12:14 Report given to INOCENTE Andrew. ca1 12:55 Musa Hernandez MD is Referral Physician. cp 13:20 IV discontinued, intact, bleeding controlled, No redness/swelling at site. Pressure zb dressing applied. Administered Medications: 10:57 Drug: Benadryl 25 mg Route: IVP; Site: right antecubital; ca1 11:00 Drug: NS 0.9% 1000 ml Route: IV; Rate: 1000 ml; Site: right antecubital; ca1 12:38 Drug: Reglan 10 mg Route: IVP; Site: right antecubital; jd3 12:38 Not Given (Patient Refused): Zofran (Ondansetron) 4 mg IVP once; over 2 minutes jd3 12:38 Drug: Decadron - Dexamethasone 10 mg Route: IVP; Site: right antecubital; jd3 13:19 Drug: Hydrocodone-Acetaminophen (7.5 mg-325 mg) 1 tabs Route: PO; zb Outcome: 12:55 Discharge ordered by MD. cp 13:19 Discharged to home ambulatory, with family. zb 13:19 Condition: stable 13:19 Discharge instructions given to patient, family, Instructed on discharge instructions, follow up and referral plans. medication usage, Demonstrated understanding of instructions, follow-up care, medications, Prescriptions given X 2. 13:21 Patient left the ED. zb Signatures: Dispatcher [employer] EDMS Amarilys Fried RN RN aa5 Ramesh Cross PA PA cp Davies, Jonathon, RN RN jCecille Sinha RN RN ca1 Marcia Michel 5 Reena White RN RN zb Corrections: (The following items were deleted from the chart) 10:27 10:04 Chief complaint: Patient states: "I've had a headache for 7 days now, I've been aa5 taking Eliquis for almost 2 days now for a clot in my leg, my blood pressure has been high around 155/[address] Perez changed my medicine from metoprolol to amlodipine/benazepril on Monday and now my blood pressure has been normal but I don't feel better". aa5
--- NOTE | 2020-01-26 12:56 | EDPHYS ---
Physician Documentation [facility] Name: Lilly Glass Age: 44 yrs Sex: Female : 1975 Arrival Date: 01/26/2020 Time: 09:54 Bed 15 Private MD: ED Physician Ramesh Kim HPI: 01/25 10:26 This 44 yrs old Female presents to ER via Ambulatory with complaints of cp Headache > 24hrs Old. 10:26 The patient complains of pain to the top of head and forehead. The patient describes cp the headache as aching, waxing and waning. Onset: The symptoms/episode began/occurred 7 day(s) ago. 10:26 Associated signs and symptoms: The patient has no apparent associated signs or symptoms.cp 10:26 Severity of symptoms: in the emergency department the pain a " 8" out of "10". Headache cp History: Denies prior headaches. Patient reports being recently started on Eliquis for DVT in leg and recent change in blood pressure medication. Patient reports she is also taking Augmentin for sinus infection. Historical: - Allergies: 10:06 Iodinated Contrast Media - IV Dye; aa5 11:32 Benadryl IV; ca1 - Home Meds: 10:06 Eliquis oral oral [Active]; Augmentin Oral [Active]; amlodipine-benazepril 10-20 mg aa5 oral cap [Active]; - PMHx: 10:06 PVCs; Hypertension; "only have 1 functioning kidney"; DVT; aa5 - Social history:: Smoking status: unknown. ROS: 10:30 Constitutional: Negative for body aches, chills, fever, poor PO intake. cp 10:30 Eyes: Negative for injury, pain, redness, and discharge. cp 10:30 ENT: Negative for ear pain, sore throat, difficulty swallowing, difficulty handling cp secretions. 10:30 Cardiovascular: Negative for chest pain, palpitations. 10:30 Respiratory: Negative for cough, shortness of breath, wheezing. 10:30 Abdomen/GI: Negative for abdominal pain, vomiting, diarrhea, constipation. 10:30 Back: Negative for pain at rest, pain with movement. 10:30 Neuro: Positive for headache, Negative for altered mental status, dizziness, syncope, weakness. 10:30 All other systems are negative. Exam: 10:35 Constitutional: The patient appears in no acute distress, alert, awake, cp non-diaphoretic, non-toxic, well developed, well nourished. 10:35 Head/Face: Normocephalic, atraumatic. cp 10:35 Eyes: Periorbital structures: appear normal, Pupils: equal, round, and reactive to light and accomodation, Extraocular movements: intact throughout, Conjunctiva: normal, no exudate, no injection, Sclera: no appreciated abnormality, Lids and lashes: appear normal, bilaterally. 10:35 ENT: External ear(s): are unremarkable, Nose: is normal, Posterior pharynx: Airway: no evidence of obstruction, patent. 10:35 Neck: ROM/movement: is normal, is supple, without pain, no range of motions limitations, no meningismus. 10:35 Chest/axilla: Inspection: normal, Palpation: is normal, no crepitus, no tenderness. 10:35 Cardiovascular: Rate: normal, Rhythm: regular, Edema: is not appreciated, JVD: is not appreciated. 10:35 Respiratory: the patient does not display signs of respiratory distress, Respirations: normal, no use of accessory muscles, no retractions, labored breathing, is not present, Breath sounds: are clear throughout, no decreased breath sounds. 10:35 Abdomen/GI: Exam negative for discomfort, distension, guarding, Inspection: abdomen appears normal. 10:35 Back: pain, is absent, ROM is normal. 10:35 Skin: no rash present. 10:35 Neuro: Orientation: to person, place \\T\\ time. Mentation: is normal, Cerebellar function: Romberg testing is negative, Motor: moves all fours, strength is normal, Sensation: is normal. 11:22 ECG was reviewed by the Attending Physician. cp Vital Signs: 10:04 BP 116 / 69; Pulse 84; Resp 16 S; Temp 98.8(O); Pulse Ox 100% on R/A; aa5 11:06 BP 159 / 84; Pulse 152; Resp 20; Pulse Ox 100% on R/A; ca1 11:30 BP 113 / 58; Pulse 94; Resp 16 S; Pulse Ox 100% on R/A; ca1 11:45 BP 101 / 55; Pulse 93; Resp 16 S; Pulse Ox 100% on R/A; ca1 12:00 BP 110 / 60; Pulse 91; Resp 16 S; Pulse Ox 100% on R/A; ca1 13:00 BP 103 / 57; Pulse 86; Resp 16; Pulse Ox 100% on R/A; zb MDM: 10:15 Patient medically screened. manuela 11:00 Differential diagnosis: cluster headache, hypertensive headache, meningoencephalitis, cp migraine, sinusitis, subarachnoid bleed, tension headache. 12:54 Data reviewed: vital signs, nurses notes, lab test result(s), EKG, radiologic studies, cp CT scan, and as a result, I will discharge patient. Test interpretation: by ED physician or midlevel provider: ECG. Counseling: I had a detailed discussion with the patient and/or guardian regarding: the historical points, exam findings, and any diagnostic results supporting the discharge/admit diagnosis, lab results, radiology results, the need for outpatient follow up, a neurologist, to return to the emergency department if symptoms worsen or persist or if there are any questions or concerns that arise at home. 01/25 10:24 Order name: PT-INR; Complete Time: 12:42 01/25 10:24 Order name: Ptt, Activated; Complete Time: 12:42 cp 01/25 10:24 Order name: CBC with Diff; Complete Time: 12:42 cp 01/25 10:24 Order name: BMP; Complete Time: 12:42 cp 01/25 10:51 Order name: Urine Dipstick--Ancillary (enter results) em1 01/25 10:51 Order name: Urine --Ancillary (enter results) em1 01/25 10:24 Order name: CT Head Brain wo Cont; Complete Time: 11:01 cp 01/25 11:01 Interpretation: Report reviewed. 01/25 10:52 Order name: Urine Dipstick-Ancillary; Complete Time: 12:42 EDSD 01/25 10:52 Order name: Urine --Ancillary; Complete Time: 12:42 EDSD 01/25 10:24 Order name: Urine Dipstick-Ancillary (obtain specimen); Complete Time: 10:50 cp 01/25 10:24 Order name: Urine Test (obtain specimen); Complete Time: 10:50 cp 01/25 10:24 Order name: IV; Complete Time: 11:30 cp 01/25 11:31 Order name: EKG; Complete Time: 11:32 ca1 01/25 11:31 Order name: EKG - Nurse/Tech; Complete Time: 11:31 ca1 EC:22 Rate is 131 beats/min. Rhythm is regular. DE interval is normal. QRS interval is cp normal. QT interval is normal. Interpreted by me. Reviewed by me. Administered Medications: 10:57 Drug: Benadryl 25 mg Route: IVP; Site: right antecubital; ca1 11:00 Drug: NS 0.9% 1000 ml Route: IV; Rate: 1000 ml; Site: right antecubital; ca1 12:38 Drug: Reglan 10 mg Route: IVP; Site: right antecubital; jd3 12:38 Not Given (Patient Refused): Zofran (Ondansetron) 4 mg IVP once; over 2 minutes jd3 12:38 Drug: Decadron - Dexamethasone 10 mg Route: IVP; Site: right antecubital; jd3 13:19 Drug: Hydrocodone-Acetaminophen (7.5 mg-325 mg) 1 tabs Route: PO; zb Disposition: 01/26 09:31 I agree with the assessment and plan of care. manuela Disposition: 01/26/20 12:55 Discharged to Home. Impression: Headache. - Condition is Stable. - Discharge Instructions: General Headache Without Cause. - Prescriptions for Fiorinal 50- 325-40 mg Oral Capsule - take 1 capsule by ORAL route every 4 hours As needed - not to exceed 6 capsules per day; 20 capsule. Zofran 4 mg Oral Tablet - take 1 tablet by ORAL route every 12 hours As needed; 20 tablet. - Medication Reconciliation Form, Thank You Letter, Antibiotic Education, Prescription Opioid Use, Work release form form. - Follow up: Musa Hernandez MD; When: 1 - 2 days; Reason: Recheck today's complaints. - Problem is new. - Symptoms have improved. Signatures: Dispatcher [employer] EDRamesh Kent MD MD cha Calderon, Audri RN RN aa5 Ramesh Cross PA PA cp Davies, Jonathon, RN RN jCecille Sinha RN RN ca1 Reena White RN RN zb Corrections: (The following items were deleted from the chart) 01/25 13:21 12:55 01/26/2020 12:55 Discharged to Home. Impression: Headache. Condition is Stable. zb Forms are Medication Reconciliation Form, Thank You Letter, Antibiotic Education, Prescription Opioid Use. Follow up: Musa Hernandez; When: 1 - 2 days; Reason: Recheck today's complaints. Problem is new. Symptoms have improved. cp
[2020-01-26] MEDS ORDERED: HYDROCODONE/APAP 7.5/325 MG TAB ONE (13:25)
[2020-01-30 00:41] VITALS: TEMP 98.8; O2SAT 100
[2020-01-30 00:48] VITALS: BP 103/57
== END 2020-01-26 13:21 | disposition home or self-care (01) ==
LOC: ER 09:53
DX: R51.9 Headache, unspecified (principal); I10 Essential (primary) hypertension; Z86.718 Personal history of other venous thrombosis and embolism; Z79.01 Long term (current) use of anticoagulants; Z88.8 Allergy status to other drugs, medicaments and biological substances; Z91.041 Radiographic dye allergy status
CPT/HCPCS: 93005; 85025; 80048; 36415; 81025; 85610; 85730; 81003; 70450; 96375; 96374; 99284; J2765; J1200; J1100; J7030; J2405 ×2

== ENCOUNTER 2020-02-04 09:29 | Day surgery (SDC) | payer OTHER ==
--- NOTE | 2020-02-03 14:29 | RAD REPORT ---
EXAM DESCRIPTION: RAD - Chest Pa And Lat (2 Views) - 02/03/2020 1:47 pm CLINICAL HISTORY: PRE OP Chest pain. COMPARISON: Chest Single View dated 08/01/2018; ABDOMEN 1 VIEW KUB dated 09/29/2011 FINDINGS: The lungs are clear. The heart is normal in size. No displaced fractures. IMPRESSION: No acute or concerning finding suspected.
[~2020-02-04 09:29] MED LIST: HEPA 1000U/500MLS 1,000 UNIT/500 ML BAG IV ONE
[2020-02-04] MEDS ORDERED: NA CHLORIDE 0.9% 500 ML ONE (09:51)
[2020-02-04] MEDS ORDERED: FENTANYL CITR 100 MCG/2 ML ONE (12:16)
[2020-02-04] MEDS ORDERED: ATROPINE SULF 1 MG/10 ML SYR IV ONE (12:16)
[2020-02-04] MEDS ORDERED: NA CHLORIDE 0.9% 0 ML ONE (12:16)
[2020-02-04] MEDS ORDERED: MIDAZOLAM HCL 2 MG/2 ML INJ ONE ×3 (12:16→12:36)
[2020-02-04] MEDS ORDERED: METHYLPREDNISOLONE 125 MG INJ ONE (12:24)
[2020-02-04] MEDS ORDERED: DIPHENHYDRAMINE 25 MG TAB/CAP ONE (12:31)
[2020-02-04 15:57] VITALS: BP 118/70; TEMP 97.8; O2SAT 99
--- NOTE | 2020-02-09 13:14 | OP ---
Surgeon: Nithin Liu MD Senior Structural Engineer: Sandi Garcia. The patient will be at bedrest for 2 hours after the procedure. She will go home after that and I wi ll see her in the office in 2 weeks. No change in medical therapy for now. History Of Present Illness: Ms. Amaro is a 44-year-old, who was admitted as an outpatient for a left heart catheterization, selective coronary arteriogram. Indication: Unstable angina. Procedure In Detail: The patient was brought to the construction or leak gang laborer on 02/04/2020, underwent a sedation wit h Versed and fentanyl. She was prepped and draped in routine sterile fashion. Using the Seldinger t echnique, 10 cc of Xylocaine was introduced in the right common femoral artery. A 6-Welsh sheath wa s introduced in the common femoral artery. Angio-Seal was used to close the case. Alvarez catheter left and right were used to select the left main and right main respectively. She was found to have perfectly normal coronaries. The patient tolerated the procedure well and there were no complication s. Blood loss was 5 mL. Total conscious sedation was 45 minutes. Final Diagnoses: Unstable angina, normal coronaries. NB/MODL Voice ID: [id number] Report ID: [id number]
== END 2020-02-04 15:28 | disposition home or self-care (01) ==
LOC: CCL 09:29
DX: I20.0 Unstable angina (principal); R51.9 Headache, unspecified; Z86.718 Personal history of other venous thrombosis and embolism; F41.1 Generalized anxiety disorder; K21.9 Gastro-esophageal reflux disease without esophagitis; E03.9 Hypothyroidism, unspecified; I12.9 Hypertensive chronic kidney disease with stage 1 through stage 4 chronic kidney disease, or unspecified chronic kidney disease; N18.9 Chronic kidney disease, unspecified; R06.09 Other forms of dyspnea
CPT/HCPCS: 71046; 93454; C1893; C1760; J2250 ×3; J3010; J7040; J1644; J2930; J0583

== ENCOUNTER 2020-05-27 16:53 | Emergency (ER) | payer OTHER ==
--- OUTSIDE RECORDS SUMMARY | 2020-05-27 16:56 | XMS REPORT | Continuity of Care Document ---
:1975 Author Organization [facility] t Address [address] [place] [address] Care Team Providers Name Role Phone Etienne LEIGH Primary Care Physician Lowell LEIGH, S. Attending Clinician Lowell LEIGH R. Attending Clinician Payers Payer Name Policy Type Policy Effective Date Expiration Date Sour Number BCBSBCBS CHOICE 2019 [place] PPO/FEDERAL 001 00:00:00 [employer] [id number] -Pr esentPPO Problems This patient has no known problems. Allergies, Adverse Reactions, Alerts This patient has no known allergies or adverse reactions. Social History Social Habit Start Date Stop Date Quantity Comments Source Sex Assigned At [birth year] [place] M ethodist 00:00:00 00:00:00 Medications This patient has no known medications. Procedures Procedure Date / Time Performed Performing Clinician Sour e US RENAL 2019-09-16 10:10:00 Ed Nelson Met main Plan of Care Planned Activity Planned Date Details Comments Source Future Scheduled 2020-09-13 INFLUENZA VACCINE [place] [facility] 00:00:00 [code = INFLUENZA VACCINE] Future Scheduled 1995-11-10 Screening for [facility] Test 00:00:00 malignant neoplasm of cervix (procedure) [code = 049010484] Future Scheduled 1992 Hepatitis C [facility] Test 00:00:00 screening (procedure) [code = 021022478] Future Scheduled 1990 COVID-19 VACCINE (1) Jennifer carvajal [facility] Test 00:00:00 [code = COVID-19 VACCINE (1)] Encounters Start End Encounter Admission Attending Care Care Encounter Source Date/Time Date/Time Type Type Clinicians Facility Department ID 2019-09-16 2019-09-16 Outpatient [facility] [id number] [place] 00:00:00 00:00:00 JOSE [address] Results Test Description Test Time Test Comments Results Result Sourc e Comments US Renal 2019-09-16 [facility] 11:24:[address] 09/16/2019 11:27 AM CDT EXAMINATI ON: US RENALCLINICAL HISTORY: N20.0 Calculus of kidney, N27.9 Small kidney unspecified, small kidney NephrolithiasisTEC HNIQUE: Sonographic imaging over the kidneys was performed. COMPARISON: None.FINDINGS:1.Th e right kidney is normal size measuring 11.5 [...] component is due to renal cysts versus hydronephrosis.3.T he bladder is unremarkable. No left ureteral jet was identified.IMPRESS ION:The left kidney is nearly completely replaced with cystic spaces, unclear what component is due to true cysts versus dilated calyces. No left ureteral jet was identified over the course of 90 seconds.[id number]
--- NOTE | 2020-05-27 20:35 | RAD REPORT ---
EXAM DESCRIPTION: CT - Stone Protocol - 05/27/2020 8:17 pm CLINICAL HISTORY: Abdominal pain. COMPARISON: None. TECHNIQUE: Computed axial tomography of the abdomen pelvis was obtained without oral or IV contrast. Lack of IV and oral contrast limits evaluation of solid organs, bowel, and vessels. Coronal reformat vik images were obtained and reviewed. All CT scans are performed using dose optimization technique as appropriate and may include automated exposure control or mA/KV adjustment according to patient size. FINDINGS: 1 millimeter calculus right kidney. No hydronephrosis. A ureteral calculus is not seen. Bl adder calculus is not present. 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 The liver, spleen, pancreas and adrenals appear grossly normal There is no evidence of diverticulitis. The appendix appears normal Hysterectomy. Slight posterior subluxation of L5 on S1 IMPRESSION: 1 millimeter nonobstructing right renal calculus Multi-cystic dysplastic left kidney
[2020-05-27 21:07] LABS: Urine Blood Negative (Negative); Urine Glucose Negative (Negative); Urine Protein Negative (Negative); Urine Specific Gravity 1.025 (1.005-1.030)
--- NOTE | 2020-05-27 21:08 | ER ---
Nurse's Notes [facility] Name: Lilly Amaro Age: 44 yrs Sex: Female : 1975 Arrival Date: 05/27/2020 Time: 16:55 Bed 16 Private MD: Diagnosis: Lower abdominal pain, unspecified;Calculus of kidney-right Presentation: 05/27 17:04 Chief complaint: Patient states: RLQ abd pain for 6 months to one year off/on. States ll1 pain got severe today, so she wanted to be checked for appendicitis. No N/V/D. No dysuria or fever. States Dr. Solano is her general surgeon. Coronavirus screen: Client denies travel out of the [place] in the last 14 days. At this time, the client does not indicate any symptoms associated with coronavirus-19. Ebola Screen: Patient denies travel to an Ebola-affected area in the 21 days before illness onset. Initial Sepsis Screen: Does the patient meet any 2 criteria? HR > 90 bpm. No. Patient's initial sepsis screen is negative. Does the patient have a suspected source of infection? Yes: Acute abdominal pain. Risk Assessment: Do you want to hurt yourself or someone else? Patient reports no desire to harm self or others. Onset of symptoms was November 14, 2019. 17:04 Method Of Arrival: Ambulatory ll1 17:04 Acuity: THEO 3 ll1 Historical: - Allergies: 17:09 Benadryl IV; ll1 17:09 Iodinated Contrast Media - IV Dye; ll1 - Home Meds: 17:09 amlodipine-benazepril 10-20 mg Oral cap [Active]; metoprolol tartrate 25 mg Oral tab 1 ll1 tab 2 times per day [Active]; Xanax 0.25 mg Oral tab as needed for Anxiety [Active]; - PMHx: 17:09 "only have 1 functioning kidney"; DVT; Hypertension; PVCs; ll1 - Immunization history:: Client reports having NOT received the Covid vaccine. Flu vaccine is not up to date. - Social history:: Smoking status: Patient denies any tobacco usage or history of. Screenin:48 Abuse screen: Denies threats or abuse. Denies injuries from another. Nutritional sf screening: No deficits noted. Tuberculosis screening: No symptoms or risk factors identified. Fall Risk None identified. Total Cortés Fall Scale indicates No Risk (0-24 pts). Assessment: 20:48 Reassessment: Patient refuses IV and labs stating, "I don't really need it. I just had sf blood work done, just need the CAT scan results". General: Appears in no apparent distress. comfortable, Behavior is calm, cooperative. Pain: Denies pain. Neuro: No deficits noted. Level of Consciousness is awake, alert, Oriented to person, place, time, situation. Cardiovascular: No deficits noted. Patient's skin is warm and dry. Respiratory: No deficits noted. Airway is patent Respiratory effort is even, unlabored, Respiratory pattern is regular, symmetrical. GI: No deficits noted. No signs and/or symptoms were reported involving the gastrointestinal system. : Reports flank pain. EENT: No deficits noted. No signs and/or symptoms were reported regarding the EENT system. Derm: No deficits noted. No signs and/or symptoms reported regarding the dermatologic system. Musculoskeletal: No deficits noted. No signs and/or symptoms reported regarding the musculoskeletal system. 21:25 Reassessment: Patient appears in no apparent distress at this time. No changes from sf previously documented assessment. Patient and/or family updated on plan of care and expected duration. Pain level reassessed. Patient is alert, oriented x 3, equal unlabored respirations, skin warm/dry/pink. Refused D/C vitals. Vital Signs: 17:04 BP 141 / 75; Pulse 95; Resp 17; Temp 97.6; Pulse Ox 100% ; Weight 61.23 kg; Height 5 ll1 ft. 2 in. (157.48 cm); Pain 6/10; 17:04 Body Mass Index 24.69 (61.23 kg, 157.48 cm) ll1 ED Course: 16:55 Patient arrived in ED. ds1 17:06 Triage completed. ll1 17:09 Arm band placed on. ll1 19:10 Ramesh Cross PA is PHCP. cp 19:10 Mikel Haney MD is Attending Physician. cp 19:11 Nitin Bustamante, INOCENTE is Primary Nurse. sf 20:16 CT Stone Protocol In Process Unspecified. EDMS 20:48 Patient has correct armband on for positive identification. Bed in low position. Call sf light in reach. Door closed. Noise minimized. Visitors limited. Lights dimmed. Verbal reassurance given. 21:00 Urine collected: clean catch specimen, clear. sf 21:25 No provider procedures requiring assistance completed. Patient did not have IV access sf during this emergency room visit. Administered Medications: 20:58 Not Given (Patient Refused): NS 0.9% 1000 ml IV at 1 bolus Per protocol; 1000 mL bolus sf 20:58 Not Given (Patient Refused): TORadol - (ketorolac) 15 mg IVP once sf Outcome: 21:07 Discharge ordered by MD. cp 21:25 Discharged to home ambulatory. sf 21:25 Condition: stable 21:25 Discharge instructions given to patient, Instructed on discharge instructions, follow up and referral plans. medication usage, Demonstrated understanding of instructions, follow-up care, medications, Prescriptions given X 1. 21:25 Patient left the ED. sf Signatures: Dispatcher Med[employer]BCOMst EDMO Kimberly Awad ds1 Ramesh Cross PA PA cp Lewis, Lynsay, RN RN ll1 Nitin Bustamante RN RN sf Corrections: (The following items were deleted from the chart) 17:07 17:04 Onset of symptoms was November 13, 2020 ll1 ll1 17:15 17:04 Chief complaint: Patient states: RLQ abd pain for 6+ months off/on. States pain ll1 got severe today so she wanted to be checked for appendicitis. No N/V/D. No dysuria or fever. ll1
--- NOTE | 2020-05-27 21:08 | EDPHYS ---
Physician Documentation [facility] Name: Lilly Amaro Age: 44 yrs Sex: Female : 1975 Arrival Date: 05/27/2020 Time: 16:55 Bed 16 Private MD: ED Physician Mikel Haney HPI: 05/27 19:30 This 44 yrs old Female presents to ER via Ambulatory with complaints of cp Abdominal Pain. 19:30 The patient presents with abdominal pain right lower quadrant. Onset: The cp symptoms/episode began/occurred 6 month(s) ago, intermittent. The symptoms do not radiate. Associated signs and symptoms: Pertinent negatives: nausea and vomiting, anorexia, blood in stools, constipation, diarrhea, dysuria, fever, vaginal discharge. The symptoms are described as waxing/waning. Modifying factors: the symptoms are aggravated by nothing. Severity of pain: in the emergency department the pain has improved mildly. 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 Flu vaccine is not up to date. - Social history:: Smoking status: Patient denies any tobacco usage or history of. ROS: 19:35 Abdomen/GI: Positive for abdominal pain, Negative for nausea, vomiting, and diarrhea, cp constipation, anorexia, black/tarry stool, rectal bleeding. 19:35 Eyes: Negative for injury, pain, redness, and discharge. cp 19:35 Constitutional: Negative for body aches, fever, poor PO intake. 19:35 Cardiovascular: Negative for chest pain, palpitations. 19:35 Respiratory: Negative for cough, shortness of breath, wheezing. 19:35 Back: Negative for flank pain. 19:35 Neuro: Negative for altered mental status, headache, weakness. 19:35 All other systems are negative. Exam: 19:40 Constitutional: The patient appears in no acute distress, alert, awake, comfortable, cp non-diaphoretic, non-toxic, well developed, well nourished. 19:40 Head/Face: Normocephalic, atraumatic. cp Vital Signs: 17:04 BP 141 / 75; Pulse 95; Resp 17; Temp 97.6; Pulse Ox 100% ; Weight 61.23 kg; Height 5 ll1 ft. 2 in. (157.48 cm); Pain 6/10; 17:04 Body Mass Index 24.69 (61.23 kg, 157.48 cm) ll1 MDM: 19:12 Patient medically screened. cp 19:30 Differential diagnosis: appendicitis, Ureterolithiasis, urinary tract infection, cp ovarian cyst. 21:07 Data reviewed: vital signs, nurses notes, lab test result(s), urinalysis, radiologic cp studies, CT scan. 21:07 Counseling: I had a detailed discussion with the patient and/or guardian regarding: the cp historical points, exam findings, and any diagnostic results supporting the discharge/admit diagnosis, lab results, radiology results, to return to the emergency department if symptoms worsen or persist or if there are any questions or concerns that arise at home. Refusal of service: The patient/guardian displays adequate decision making capability and despite a detailed discussion of alternatives, benefits, risks, and consequences refuses: blood work. Special discussion: Based on the patient's Hx, exam, and Dx evaluation, there is no indication for emergent surgery or inpatient Tx. It is understood by the patient/guardian that if the Sx's persist or worsen they need to return immediately for re-evaluation. 05/27 19:21 Order name: Urine Dipstick-Ancillary (obtain specimen); Complete Time: 21:09 cp 05/27 19:21 Order name: CT Stone Protocol; Complete Time: 20:41 05/27 21:07 Order name: Urine Dipstick-Ancillary EDMS Administered Medications: 20:58 Not Given (Patient Refused): NS 0.9% 1000 ml IV at 1 bolus Per protocol; 1000 mL bolus sf 20:58 Not Given (Patient Refused): TORadol - (ketorolac) 15 mg IVP once sf Disposition: 05/28 01:44 Co-signature as Attending Physician, Mikel Haney MD. rn Disposition: 05/27/20 21:07 Discharged to Home. Impression: Lower abdominal pain, unspecified, Calculus of kidney - right. - Condition is Stable. - Discharge Instructions: Abdominal Pain, Adult, Kidney Stones. - Prescriptions for Diclofenac Sodium 75 mg Oral Tablet, Delayed Release (E.C.) - take 1 tablet by ORAL route 2 times per day; 20 tablet. - Medication Reconciliation Form, Thank You Letter, Antibiotic Education, Prescription Opioid Use form. - Follow up: Private Physician; When: 2 - 3 days; Reason: Recheck today's complaints. - Problem is new. - Symptoms have improved. Signatures: Dispatcher [employer] EDIN Mikel Haney MD MD rn Ramesh Cross PA PA cp Kala Schumacher RN RN ll1 Nitin Bustamante RN RN sf Corrections: (The following items were deleted from the chart) 05/27 20:58 19:21 IV Saline Lock ordered. cp sf 20:58 19:21 Labs collected and sent ordered. cp sf 20:59 19:21 Basic Metabolic Panel ordered. [facility] EDIN 21:08 21:07 05/27/2020 21:07 Discharged to Home. Impression: Lower abdominal pain, cp unspecified. Condition is Stable. Forms are Medication Reconciliation Form, Thank You Letter, Antibiotic Education, Prescription Opioid Use. Follow up: Private Physician; When: 2 - 3 days; Reason: Recheck today's complaints. Problem is new. Symptoms have improved. cp 21:25 21:08 05/27/2020 21:07 Discharged to Home. Impression: Lower abdominal pain, sf unspecified; Calculus of kidney - right. Condition is Stable. Discharge Instructions: Abdominal Pain, Adult, Kidney Stones. Forms are Medication Reconciliation Form, Thank You Letter, Antibiotic Education, Prescription Opioid Use. Follow up: Private Physician; When: 2 - 3 days; Reason: Recheck today's complaints. Problem is new. Symptoms have improved. cp
[2020-05-27 21:49] VITALS: BP 141/75; TEMP 97.6; O2SAT 100
== END 2020-05-27 21:25 | disposition home or self-care (01) ==
LOC: ER 16:53
DX: N20.0 Calculus of kidney (principal); I10 Essential (primary) hypertension; Z88.8 Allergy status to other drugs, medicaments and biological substances; Z86.718 Personal history of other venous thrombosis and embolism; Z91.041 Radiographic dye allergy status
CPT/HCPCS: 74176; 76377; 81003; 99283

== ENCOUNTER 2021-05-07 09:11 | Day surgery (SDC) | payer OTHER ==
[2021-05-07] MEDS ORDERED: Ringers Lactate 1,000 ML IV ONE (09:34)
[2021-05-07 10:43] VITALS: O2SAT 100
[2021-05-07] MEDS ORDERED: FENTANYL CITR 100 MCG/2 ML ONE (10:58)
[2021-05-07] MEDS ORDERED: propofoL 200 MG/20 ML VIAL IV ONE ×2 (10:58→11:42)
[2021-05-07] MEDS ORDERED: MIDAZOLAM HCL 2 MG/2 ML INJ ONE (10:58)
[2021-05-07] MEDS ORDERED: LIDOCAINE 1% MPF 5 ML VIAL ONE (11:41)
--- NOTE | 2021-05-07 11:49 | ENDO RPT ---
[address], [address] EGD PROCEDURE REPORT EXAM DATE: 05/07/2021 PATIENT NAME: Lilly Amaro MR#: [id number] BIRTHDATE: 1975 ATTENDING: Hosea Solano DR STATUS: outpatient PAINT ROLLER COVERMAKER: Ria Keys RN and Rosie Hernandez INDICATIONS: The patient is a 45 yr old Female here for an EGD due to GERD PROCEDURE PERFORMED: EGD with biopsy for H. pylori MEDICATIONS: Per Anesthesia. TOPICAL ANESTHETIC: none CONSENT: The patient understands the risks and benefits of the procedure and understands that these risks include, but are not limited to: sedation, allergic reaction, infection, perforation and/or bleeding. Alternative means of evaluation and treatment include, among others: physical exam, x-rays, and/or surgical intervention. The patient elects to proceed with this endoscopic procedure. DESCRIPTION OF PROCEDURE: During intra-op preparation period all mechanical medical equipment was checked for proper function. Hand hygiene and appropriate measures for infection prevention was taken. Procedure, possible complications, and alternatives including but not limited to the possibility of bleeding, perforation, tear, infection, sepsis, need for surgery, need for blood transfusion, and anesthesia related complications were explained to the patient. After the risks, benefits and alternatives of the procedure were thoroughly explained, Informed consent was verified, confirmed and timeout was successfully executed by the treatment team. The patient was placed in the left lateral position. The patient was anesthetized with topical anesthesia. Through the anesthetized oropharyngeal area, the scope was passed without any difficulty. The EG-[id number] ([id number]) and EC-3890Li ([id number]) endoscope was introduced through the mouth and advanced to the second portion of the duodenum. Retroflexed views revealed no abnormalities. The gastroscope was then slowly withdrawn and removed. Mild gastritis was found in the body and the antrum of the stomach. A biopsy for H. pylori was taken. Multiple erosions were found in the body and the antrum of the stomach. Multiple biopsies were obtained and sent to pathology. ADVERSE EVENTS: There were no complications. IMPRESSIONS: 1. Mild gastritis was found in the body and the antrum of the stomach 2. Multiple erosions were found in the body and the antrum of the stomach RECOMMENDATIONS: 1. anti-reflux regimen 2. acid suppression therapy 3. await biopsy results 4. avoid NSAIDS 5. follow-up: office 2 week(s) 6. follow-up of helicobacter pylori status, treat if indicated REPEAT EXAM: Hosea Solano DR eSigned: Hosea Solano DR 05/07/2021 11:49 AM cc: CPT CODES: ICD9 CODES: PATIENT NAME: AmaroLilly MR#: [id number]
--- NOTE | 2021-05-07 11:51 | ENDO RPT ---
[address], [address] COLONOSCOPY PROCEDURE REPORT EXAM DATE: 05/07/2021 PATIENT NAME: Lilly Amaro MR #: [id number] BIRTHDATE: 1975 ATTENDING: Hosea Solano DR STATUS: outpatient PICTURE ENLARGER: Rosie Hernandez and Ria Keys RN INDICATIONS: The patient is a 45 yr old Female here for a colonoscopy due to colon cancer screening PROCEDURE PERFORMED: Screening Colonoscopy and Colonoscopy MEDICATIONS: Per Anesthesia. ESTIMATED BLOOD LOSS: None CONSENT: The patient understands the risks and benefits of the procedure and understands that these risks include, but are not limited to: sedation, allergic reaction, infection, perforation and/or bleeding. Alternative means of evaluation and treatment include, among others: physical exam, x-rays, and/or surgical intervention. The patient elects to proceed with this endoscopic procedure. DESCRIPTION OF PROCEDURE: During intra-op preparation period all mechanical medical equipment was checked for proper function. Hand hygiene and appropriate measures for infection prevention was taken. Procedure, possible complications, alternatives including, but not limited to possibility of bleeding, perforation, tear, infection, sepsis, need for surgery, need for blood transfusion, were explained to the patient. After the risks, benefits and alternatives of the procedure were thoroughly explained, Informed consent was verified, confirmed and timeout was successfully executed by the treatment team. The patient was placed in the left lateral position. A digital rectal exam was performed and revealed internal hemorrhoids. After appropriate level of anesthesia, the scope was passed. The EC-[id number] ([id number]) endoscope was introduced through the anus and advanced to the cecum, which was identified by both the appendix and ileocecal valve. The quality of the prep was fair. The instrument was then slowly withdrawn as the colon was fully examined. Scope withdrawal time was 10 minutes. COLON FINDINGS: A normal appearing cecum, ileocecal valve, and appendiceal orifice were identified. the ascending, transverse, descending, sigmoid colon, and rectum appeared unremarkable. Small internal hemorrhoids were found. Retroflexed views revealed no abnormalities. The scope was then completely withdrawn from the patient and the procedure terminated. ADVERSE EVENTS: There were no complications. IMPRESSIONS: 1. A normal appearing cecum, ileocecal valve, and appendiceal orifice were identified. the ascending, transverse, descending, sigmoid colon, and rectum appeared unremarkable 2. Small internal hemorrhoids RECOMMENDATIONS: RECALL: Hosea Solano DR eSigned: Hosea Solano DR 05/07/2021 11:50 AM cc: CPT CODES: ICD9 CODES:
[2021-05-07 13:11] VITALS: BP 100/54; TEMP 97.6
== END 2021-05-07 12:47 | disposition home or self-care (01) ==
LOC: OR 09:11
PROVIDERS: ATTEND Surgery
PROC: 0DJD8ZZ Inspection of Lower Intestinal Tract, Via Natural or Artificial Opening Endoscopic (ICD-10-PCS; 2021-05-07)
PROC: 0DB98ZX Excision of Duodenum, Via Natural or Artificial Opening Endoscopic, Diagnostic (ICD-10-PCS; principal; 2021-05-07 12:15)
PROC: 0DB68ZX Excision of Stomach, Via Natural or Artificial Opening Endoscopic, Diagnostic (ICD-10-PCS; 2021-05-07 12:15)
DX: K21.9 Gastro-esophageal reflux disease without esophagitis (principal); K25.9 Gastric ulcer, unspecified as acute or chronic, without hemorrhage or perforation; Z12.11 Encounter for screening for malignant neoplasm of colon; K64.8 Other hemorrhoids; K29.50 Unspecified chronic gastritis without bleeding
CPT/HCPCS: 88312; 88305; 43239; 45378; J2704 ×2; J2250; J3010; J7120

== ENCOUNTER 2023-07-26 07:56 | Emergency (ER) | payer OTHER ==
--- NOTE | 2023-07-26 08:36 | RAD REPORT ---
EXAM DESCRIPTION: RAD - Chest Single View - 07/26/2023 8:28 am CLINICAL HISTORY: HTN, palpitations Chest pain. COMPARISON: Chest Pa And Lat (2 Views) dated 02/03/2020; Chest Single View dated 08/01/2018; ABDOMEN 1 VIEW KUB dated 09/29/2011 FINDINGS: Portable technique limits examination quality. The lungs are grossly clear. The heart is normal in size. No displaced fractures. IMPRESSION: No acute intrathoracic process suspected.
--- NOTE | 2023-07-26 08:47 | RAD REPORT ---
EXAM DESCRIPTION: US - Extremity Venous Uni Ltd - 07/26/2023 8:42 am CLINICAL HISTORY: PAIN Leg swelling and edema. COMPARISON: Extrem Venous W Compress Chip dated 08/02/2018 FINDINGS: Left lower extremity venous system was interrogated with Doppler technique. Normal flow, c ompressibility and augmentation was noted. There is no DVT present. IMPRESSION: No evidence of left lower extremity deep venous thrombosis.
--- NOTE | 2023-07-26 08:51 | RAD REPORT ---
EXAM DESCRIPTION: CT - Head Brain Wo Cont - 07/26/2023 8:45 am CLINICAL HISTORY: LONG, hypertension Headache, hypertension COMPARISON: Head Brain Wo Cont dated 01/26/2020 TECHNIQUE: All CT scans are performed using dose optimization technique as appropriate and may inclu de automated exposure control or mA/KV adjustment according to patient size. FINDINGS: No intracranial hemorrhage, hydrocephalus or extra-axial fluid collection.No areas of brai n edema or evidence of midline shift. The paranasal sinuses and mastoids are clear. The calvarium is intact. IMPRESSION: No acute intracranial abnormality.
[2023-07-26 09:26] LABS: Absolute Basophils 0.1 K/uL (0-0.5); Absolute Eosinophils 0.3 K/uL (0-0.5); Absolute Lymphocytes (CBC) 1.3 K/uL (0.7-4.9); Absolute Monocytes 0.5 K/uL (0.1-1.3); Absolute Neutrophil 4.3 K/uL (1.8-8.0); Basophils % 1.3 % (0-1.3); Hematocrit 40.9 % (36.0-45.0); Hemoglobin 13.7 g/dL (12.0-15.0); MCH 29.9 pg (27.0-35.0); MCHC 33.5 g/dL (32.0-36.0); MCV 89.1 fL (80-100); MPV 8.5 fL (7.6-11.3); Neutrophils % 66.7 % (41.7-73.7); Nucleated Red Blood Cells % 0.5 % (0-0); Platelets 240 thou/uL (152-406); RBC Red Blood Cell Count 4.59 M/uL (3.86-4.86); Red Cell Distribution Width 13.6 % (12.1-15.2)
[2023-07-26 09:29] LABS: PT Prothrombin Time 11.2 SECONDS (9.5-12.5); Protime INR 1.02
[2023-07-26 10:14] LABS: Troponin High Sensitivity 3.6 pg/mL (<58.9)
--- NOTE | 2023-07-26 10:45 | EDPHYS ---
Physician Documentation [facility] Name: Lilly Amaro Age: 47 yrs Sex: Female : 1975 Arrival Date: 07/26/2023 Time: 07:56 Bed 7 Private MD: ED Physician Mikel Haney HPI: 07/25 10:40 This 47 yrs old Female presents to ER via Ambulatory with complaints of Headache, High rn Blood Pressure, Leg Tingling. 10:40 The patient complains of pain to the top of head. The patient describes the headache as rn aching. Onset: The symptoms/episode began/occurred 2 month(s) ago. Associated signs and symptoms: Pertinent negatives: altered mental status, fever, neck stiffness. Severity of symptoms: At its worst the pain was moderate, in the emergency department the pain is unchanged. The symptoms are alleviated by nothing. the symptoms are aggravated by nothing. The patient has experienced similar episodes in the past. Patient reports history of high blood pressure but no longer taking metoprolol, was taken off by her dulite machine bluer. Patient reports several months of elevated blood pressure associated with intermittent headache. Denies any chest pain or shortness of breath. No head injury. No focal neurological deficit. Patient also concerned because she only has 1 functioning kidney and will wants to make sure it is okay. Does not have PCP at this time.. Historical: - Allergies: 08:16 Benadryl IV; ap3 08:16 Iodinated Contrast Media - IV Dye; ap3 - PMHx: 08:16 DVT; Hypertension; PVCs; only having one fuctioning kidney (PVCs); ap3 - Immunization history:: Client reports receiving the 2nd dose of the Covid vaccine. - Infectious Disease History:: Denies. - Family history:: not pertinent. - Social history:: Smoking status: . - Hospitalizations: : No recent hospitalization is reported. ROS: 10:40 Constitutional: Negative for fever, chills, and weight loss, Cardiovascular: Negative rn for chest pain, palpitations, and edema, Respiratory: Negative for shortness of breath, cough, wheezing, and pleuritic chest pain, Abdomen/GI: Negative for abdominal pain, nausea, vomiting, diarrhea, and constipation, Back: Negative for injury and pain, MS/Extremity: Negative for injury and deformity, Skin: Negative for injury, rash, and discoloration, Neuro: Positive for headache, negative for focal weakness or numbness Exam: 10:40 Constitutional: This is a well developed, well nourished patient who is awake, alert, rn and in no acute distress. Seems anxious Head/Face: Normocephalic, atraumatic. Neck: No meningismus Cardiovascular: Regular rate and rhythm. No pulse deficits. Respiratory: No increased work of breathing, no retractions or nasal flaring. Abdomen/GI: Soft, non-tender, with normal bowel sounds. No distension or tympany. No guarding or rebound. No evidence of tenderness throughout. MS/ Extremity: Pulses equal, no cyanosis. Neurovascular intact. Full, normal range of motion. Equal circumference. Neuro: Awake and alert, GCS 15, oriented to person, place, time, and situation. Cranial nerves II-XII grossly intact. Motor strength 5/5 in all extremities. Sensory grossly intact. 13:03 ECG was reviewed by the Attending Physician. rn Vital Signs: 08:13 BP 166 / 86; Pulse 109; Resp 18; Temp 97.4; Pulse Ox 100% ; ap3 08:19 Pulse 94; Pulse Ox 100% ; Weight 62.6 kg; Height 5 ft. 0 in. ; Pain 8/10; ap3 10:46 BP 134 / 78; Pulse 69; Resp 18; Pulse Ox 99% on R/A; ld1 08:19 Body Mass Index 26.95 (62.60 kg, 152.4 cm) ap3 08:19 Pain Scale: Adult ap3 Leonel Coma Score: 10:40 Eye Response: spontaneous(4). Motor Response: obeys commands(6). Verbal Response: rn oriented(5). Total: 15. MDM: 08:00 Patient medically screened. rn 10:40 Differential diagnosis: hypertensive headache, intracerebral hemorrhage, neoplasm, rn tension headache, vasomotor headache. Data reviewed: vital signs, nurses notes, lab test result(s), EKG, radiologic studies, CT scan, and as a result, I will discharge patient. Counseling: I had a detailed discussion with the patient and/or guardian regarding the historical points, exam findings, and any diagnostic results supporting the discharge/admit diagnosis, lab results, radiology results, the need for outpatient follow up, to return to the emergency department if symptoms worsen or persist or if there are any questions or concerns that arise at home. Special discussion: I have referred the patient to see his PCP for further evaluation of high blood pressure. I discussed with the patient/guardian in detail that at this point there is no indication for admission to the hospital. It is understood, however, that if the symptoms persist or worsen the patient needs to return immediately for re-evaluation. ED course: I have personally reviewed all of the results, including but not limited to blood tests and imaging deemed necessary to safely discharge this patient at this time. All results given to and printed out for patient. I personally went over all the results with the patient and answered all questions. Patient will follow-up with PCP and or specialist as discussed. Return precautions given and understood. Will prescribe her metoprolol that she was on originally and patient has made an appointment with a physician for follow-up.. 07/25 08:21 Order name: Basic Metabolic Panel; Complete Time: 10:21 rn 07/25 08:21 Order name: CBC with Diff; Complete Time: 10:21 rn 07/25 08:21 Order name: NT PRO-BNP; Complete Time: 10:21 rn 07/25 08:21 Order name: PT-INR; Complete Time: 10:21 rn 07/25 08:21 Order name: Troponin HS; Complete Time: 10:21 rn 07/25 08:21 Order name: CT Head Brain wo Cont; Complete Time: 08:55 rn 07/25 08:21 Order name: Extremity Venous Uni Ltd US; Complete Time: 08:55 rn 07/25 08:21 Order name: XRAY Chest (1 view); Complete Time: 08:55 rn 07/25 08:21 Order name: Cardiac monitoring; Complete Time: 09:07/25 08:21 Order name: EKG - Nurse/Tech; Complete Time: 09:06 07/25 08:21 Order name: IV Saline Lock; Complete Time: 09:06 07/25 08:21 Order name: Labs collected and sent; Complete Time: 09: rn 07/25 08:21 Order name: O2 Per Protocol; Complete Time: 08:34 rn 07/25 08:21 Order name: O2 Sat Monitoring; Complete Time: 08:34 07/25 09:28 Order name: Labs - recollect needed: green top; Complete Time: 09:49 bc6 EC:03 Rate is 78 beats/min. Rhythm is regular. QRS [place] is Normal. [place] interval is normal. QRS rn interval is normal. QT interval is normal. No Q waves. T waves are Normal. No ST changes noted. Clinical impression: Normal ECG. Interpreted by me. Reviewed by me. Administered Medications: No medications were administered Disposition Summary: 07/26/23 10:45 Discharge Ordered Notes: Location: Home rn Problem: an ongoing problem rn Symptoms: have improved rn Condition: Stable rn Diagnosis - Essential (primary) hypertension rn - Headache rn Followup: rn - With: Private Physician - When: As needed - Reason: Recheck today's complaints, Re-evaluation by your physician Discharge Instructions: - Discharge Summary Sheet rn - General Headache Without Cause rn - Hypertension, Adult rn - Managing Your Hypertension rn Forms: - Medication Reconciliation Form rn - Antibiotic learning and development manager - Prescription Opioid Use rn - Patient Portal Instructions rn - Leadership Thank You Letter rn Prescriptions: - metoprolol succinate 25 mg Oral Tablet, Extended Release 24 hr - take 1 tablet ORAL route daily; 60 tablet; Refills: 0, Product Selection rn Permitted Signatures: Dispatcher [employer] EDMikel Vaughan MD MD rn Prokisch, Amanda, RN RN ap3 Madelyn Steel 6 Corrections: (The following items were deleted from the chart) 08:22 08:22 Head Brain Wo Cont+CT.RAD.BRZ ordered. EDMS EDMS 08:22 08:22 Extremity Venous Uni Ltd+US.RAD.BRZ ordered. EDMS EDMS 08:22 08:22 BASIC METABOLIC PANEL+C.LAB.BRZ ordered. EDMS EDMS 08:22 08:22 CBC+H.LAB.BRZ ordered. EDMS EDMS 08:22 08:22 PROBNP+C.LAB.BRZ ordered. EDMS EDMS 08:22 08:22 PROTIME (+INR)+COAG.LAB.BRZ ordered. EDMS EDMS 08:22 08:22 Troponin High Sensitivity+C.LAB.BRZ ordered. EDMS EDMS 08:22 08:22 Chest Single View+RAD.RAD.BRZ ordered. EDMS EDMS
--- NOTE | 2023-07-26 10:45 | ER ---
Nurse's Notes [facility] Name: Lilly Amaro Age: 47 yrs Sex: Female : 1975 Arrival Date: 07/26/2023 Time: 07:56 Bed 7 Private MD: Diagnosis: Essential (primary) hypertension;Headache Presentation: 07/25 08:13 Chief complaint: Patient states: she has been having headaches since June 01, and ap3 has been having "fluctuating" blood pressures during this time. patient denies being treated for high blood pressure. Patient was treated for blood pressure in the past. Patient also reports tingling in the left leg. Coronavirus screen: At this time, the client does not indicate any symptoms associated with coronavirus-19. Ebola Screen: No symptoms or risks identified at this time. Initial Sepsis Screen: Does the patient meet any 2 criteria? HR > 90 bpm. No. Patient's initial sepsis screen is negative. Does the patient have a suspected source of infection? No. Patient's initial sepsis screen is negative. Risk Assessment: Do you want to hurt yourself or someone else? Patient reports no desire to harm self or others. Onset of symptoms was June 02, 2023. 08:13 Method Of Arrival: Ambulatory ap3 08:13 Acuity: THEO 3 ap3 Triage Assessment: 08:17 Headache History: The patient has had previous headaches. General: Appears distressed, ap3 Behavior is cooperative, anxious. Pain: Complains of pain in head Pain began June 01. Pain:. Neuro: Level of Consciousness is awake, alert, obeys commands, Oriented to person, place, time, situation, Appropriate for age Gait is steady, Speech is normal. Neuro: Reports numbness in left leg. Cardiovascular: Patient's skin is warm and dry. Respiratory: Airway is patent Respiratory effort is even, unlabored, Respiratory pattern is regular, symmetrical. 08:20 Pain: Pain currently is 8 out of 10 on a pain scale. Also complains of no other ap3 associated symptoms. Historical: - Allergies: 08:16 Benadryl IV; ap3 08:16 Iodinated Contrast Media - IV Dye; ap3 - PMHx: 08:16 DVT; Hypertension; PVCs; only having one fuctioning kidney (PVCs); ap3 - Immunization history:: Client reports receiving the 2nd dose of the Covid vaccine. - Infectious Disease History:: Denies. - Family history:: not pertinent. - Social history:: Smoking status: . - Hospitalizations: : No recent hospitalization is reported. Screenin:18 Abuse screen: Denies threats or abuse. Nutritional screening: No deficits noted. ap3 Tuberculosis screening: No symptoms or risk factors identified. 09:03 [facility] ED Fall Risk Assessment (Adult) History of falling in the last 3 months, ko1 including since admission No falls in past 3 months (0 pts) Confusion or Disorientation No (0 pts) Intoxicated or Sedated No (0 pts) Impaired Gait No (0 pts) Mobility Assist Device Used Yes (1 pt) Altered Elimination No (0 pt) Score/Fall Risk Level 0 - 2 = Low Risk Oriented to surroundings, Maintained a safe environment, Educated pt \\T\\ family on fall prevention, incl call for assistance when getting out of bed, Assessed \\T\\ reinforced patient's understanding of fall precautions, Provided non-skid footwear, Hourly rounding (assess needs \\T\\ fall precautionary measures) done. Assessment: 09:03 General: Appears in no apparent distress. Behavior is calm, cooperative, appropriate ko1 for age. Pain: Complains of pain in headache. Neuro: Reports headache frontal area, tingling in left leg. Cardiovascular: No deficits noted. Respiratory: No deficits noted. GI: No deficits noted. : No deficits noted. EENT: No deficits noted. Derm: No deficits noted. Musculoskeletal: No deficits noted. 10:55 Reassessment: Patient appears in no apparent distress at this time. No changes from ld1 previously documented assessment. Patient and/or family updated on plan of care and expected duration. Pain level reassessed. Vital Signs: 08:13 BP 166 / 86; Pulse 109; Resp 18; Temp 97.4; Pulse Ox 100% ; ap3 08:19 Pulse 94; Pulse Ox 100% ; Weight 62.6 kg; Height 5 ft. 0 in. ; Pain 8/10; ap3 10:46 BP 134 / 78; Pulse 69; Resp 18; Pulse Ox 99% on R/A; ld1 08:19 Body Mass Index 26.95 (62.60 kg, 152.4 cm) ap3 08:19 Pain Scale: Adult ap3 Leonel Coma Score: 10:40 Eye Response: spontaneous(4). Motor Response: obeys commands(6). Verbal Response: rn oriented(5). Total: 15. ED Course: 08:00 Patient arrived in ED. mg5 08:00 Mikel Haney MD is Attending Physician. rn 08:16 Triage completed. ap3 08:18 Arm band placed on right wrist. ap3 08:29 XRAY Chest (1 view) In Process Unspecified. EDMS 08:44 Extremity Venous Uni Ltd US In Process Unspecified. EDMS 08:46 CT Head Brain wo Cont In Process Unspecified. EDMS 09:03 Kacie Grant, RN is Primary Nurse. ko1 09:03 Patient has correct armband on for positive identification. Allergy band placed. Bed in ko1 low position. Call light in reach. Side rails up X 1. Provided Education on: labs, meds, call light. Client placed on continuous cardiac and pulse oximetry monitoring. NIBP monitoring applied. hospital monitor on. Door closed. Noise minimized. Lights dimmed. Warm blanket given. Pillow given. 09:03 No provider procedures requiring assistance completed. ko1 09:06 Basic Metabolic Panel Sent. ko1 09:06 CBC with Diff Sent. ko1 09:06 NT PRO-BNP Sent. ko1 09:06 PT-INR Sent. ko1 09:06 Troponin HS Sent. ko1 10:55 IV discontinued, intact, bleeding controlled, No redness/swelling at site. ld1 Administered Medications: No medications were administered Medication: 09:03 VIS not applicable for this client. ko1 Outcome: 10:45 Discharge ordered by . rn 10:55 Discharged to home ambulatory, ld1 10:55 Condition: stable 10:55 Discharge instructions given to patient, Instructed on discharge instructions, follow up and referral plans. medication usage, Demonstrated understanding of instructions, follow-up care, medications, Prescriptions given X 1, 10:55 Patient left the ED. ld1 Signatures: Dispatcher [employer] [facility] Mikel Haney MD MD rn Prokisch, Amanda, RN RN ap3 Lary Ruano RN RN ld1 Kacie Grant, INOCENTE RN [email or web address] Kamryn Rasmussen mg5
[2023-07-26 11:08] VITALS: BP 134/78; TEMP 97.4; O2SAT 99
--- NOTE | 2023-07-31 15:13 | EKG ---
Test Date: 2023-07-26 Test Time: 09:12:13 Plastics Heat Welder: CARTER MEASUREMENT RESULTS: Intervals: Rate: 78 IA: 142 QRSD: 72 QT: 354 QTc: 403 [place]: P: 74 IA: 142 QRS: 63 T: 34 INTERPRETIVE STATEMENTS: Normal sinus rhythm Normal ECG No previous ECG available for comparison Electronically Signed On 07-31-23 14:57:25 CDT by Storm Nunes
== END 2023-07-26 10:55 | disposition home or self-care (01) ==
LOC: ER 07:56
DX: I10 Essential (primary) hypertension (principal); R51.9 Headache, unspecified
CPT/HCPCS: 36415; 70450; 71045; 80048; 83880; 84484; 85025; 85610; 93005; 93971; 99284

== ENCOUNTER 2024-03-26 05:07 | Emergency (ER) | payer OTHER ==
--- NOTE | 2024-03-26 06:48 | RAD REPORT ---
EXAM DESCRIPTION: Abdomen Pelvis Wo Contrast CLINICAL HISTORY: flank pain, kidney stone, L flank;Abd pain COMPARISON: May 27, 2020 report only TECHNIQUE: Contiguous axial sections of the abdomen and pelvis were obtained without intravenous contrast. This exam was performed according to our departmental dose-optimization program, which includes automated exposure control, a djustment of the mA and/or kV according to patient size and/or use of iterative reconstruction technique. FINDINGS: Lower Chest: The imaged lung bases are clear. No pleural or pericardial effusion. Organs: The liver, spleen, gallbladder, pancreas, and adrenal glands are normal. The right kidney dem onstrates a 2 mm nonobstructing inferior pole calculus. The left kidney demonstrates severe hydronephrosis with extens qing cortical thinning and features most consistent with chronic UPJ obstruction. GI/Bowel: There are no findings of small bowel obstruction. No acute bowel wall inflammatory changes. The appendix is normal. Pelvis: The bladder is normal. The rectum is normal. No pelvic free fluid. No pelvic lymphadenopathy. Peritoneum/Retroperitoneum: No intraperitoneal free air. No intraperitoneal free fluid. No mesenteric or retroperitoneal lymphadenopathy. Bones/Soft Tissues: There are no suspicious-appearing lytic or blastic osseous lesions. IMPRESSION: 1. Severe left hydronephrosis with cortical thinning and features most consistent with chronic UPJ ob struction. 2. Right nephrolithiasis. RECOMMENDATIONS: Electronically signed by: Tim Gillespie MD 03/26/2024 06:44 AM [facility] Due to temporary technical issues with the PACS/RealLife[employer] reporting system, reports are being damian d by the in-house radiologist without review as a courtesy to ensure prompt reporting the interpreting radiologist is fully responsible for the content of the report. Transcribed Date/Time: 03/26/2024 6:47 AM
[2024-03-26 08:02] LABS: Specific Gravity 1.014 (1.005-1.030); Sqamous Epithelial <5 /HPF (None Seen); Urine Bacteria None Seen /HPF (<20); Urine Bilirubin 1+ (Negative); Urine Blood Negative (Negative); Urine Clarity Turbid (Clear); Urine Color Dark-Brown (Yellow); Urine Culture Reflex Order NOT NEEDED; Urine Glucose NEGATIVE (Negative); Urine Ketones NEGATIVE (Negative); Urine Microscopic Reflex YN ORDER UMIC; Urine Mucus Slight /HPF (None Seen); Urine Nitrite 1+ (Negative); Urine Protein NEGATIVE (Negative); Urine RBC None Seen /HPF (None Seen); Urine Urobilinogen 2+ (Normal); Urine WBC <5 /HPF (<5); Urine pH 5.5 (5.0-7.0)
--- NOTE | 2024-03-26 08:29 | ER ---
Nurse's Notes [facility] Name: Lilly Amaro Age: 48 yrs Sex: Female : 1975 Arrival Date: 03/26/2024 Time: 05:07 Bed 18 Private MD: Diagnosis: Lower abdominal pain, unspecified;Other hydronephrosis Presentation: 03/26 05:35 Chief complaint: Patient states: FREQ URINATION AND PELVIC PAIN. Coronavirus screen: br2 Client denies travel out of the [place] in the last 14 days. Ebola Screen: Patient denies exposure to infectious person. Initial Sepsis Screen: Does the patient meet any 2 criteria? No. Patient's initial sepsis screen is negative. Does the patient have a suspected source of infection? No. Patient's initial sepsis screen is negative. Risk Assessment: Do you want to hurt yourself or someone else? Patient reports no desire to harm self or others. Onset of symptoms is unknown. 05:35 Method Of Arrival: Ambulatory br2 05:35 Acuity: THEO 3 br2 Triage Assessment: 05:37 General: Appears in no apparent distress. comfortable, Behavior is calm, cooperative. br2 Pain: Complains of pain in suprapubic area, right lower quadrant and left lower quadrant. : Reports urinary frequency, HESITANCY. Historical: - Allergies: 05:37 Benadryl IV; br2 05:37 Iodinated Contrast Media - IV Dye; br2 - PMHx: 05:37 DVT; Hypertension; only having one fuctioning kidney (PVCs); PVCs; br2 - Immunization history:: Adult Immunizations up to date. - Infectious Disease History:: Denies. - Social history:: Smoking status: Patient/guardian denies using tobacco. Screenin:00 [facility] ED Fall Risk Assessment (Adult) History of falling in the last 3 months, dd2 including since admission No falls in past 3 months (0 pts) Confusion or Disorientation No (0 pts) Intoxicated or Sedated No (0 pts) Impaired Gait No (0 pts) Mobility Assist Device Used No (0 pt) Altered Elimination No (0 pt) Score/Fall Risk Level 0 - 2 = Low Risk Oriented to surroundings, Maintained a safe environment, Educated pt \T\ family on fall prevention, incl call for assistance when getting out of bed, Assessed \T\ reinforced patient's understanding of fall precautions, Hourly rounding (assess needs \T\ fall precautionary measures) done. Abuse screen: Denies threats or abuse. Nutritional screening: No deficits noted. Tuberculosis screening: No symptoms or risk factors identified. Assessment: 06:00 General: Appears in no apparent distress. uncomfortable, Behavior is calm, cooperative, dd2 appropriate for age. Pain: Complains of pain in abdomen and left lower quadrant and right lower quadrant and suprapubic area Pain does not radiate. Pain currently is 7 out of 10 on a pain scale. Neuro: No deficits noted. [place] Agitation-Sedation Scale (RASS): 0 - Alert and Calm. Cardiovascular: No deficits noted. Patient's skin is warm and dry. Respiratory: No deficits noted. Airway is patent Respiratory effort is even, unlabored, Respiratory pattern is regular, symmetrical. GI: Bowel sounds present X 4 quads. Abdomen is tender to palpation in suprapubic area, right lower quadrant and left lower quadrant Reports lower abdominal pain. : Reports cramping, lower quadrant(s) urgency, urinary frequency. EENT: No deficits noted. No signs and/or symptoms were reported regarding the EENT system. Derm: No deficits noted. No signs and/or symptoms reported regarding the dermatologic system. Musculoskeletal: No deficits noted. No signs and/or symptoms reported regarding the musculoskeletal system. 07:00 Reassessment: PT REFUSING PIV ACCESS AND PHLEBOTOMY, NOTIFIED. dd2 08:03 Reassessment: PT COUNSELED BY ATTENDING, AGREED TO UA AND NON-CONTRAST CT. bp Vital Signs: 05:35 BP 141 / 70; Pulse 91; Resp 18; Temp 97.7(O); Pulse Ox 100% on R/A; Weight 61.69 kg; br2 Height 5 ft. 2 in. ; Pain 5/10; 08:46 BP 137 / 75; Pulse 81; Resp 16; Pulse Ox 100% ; bp 05:35 Body Mass Index 24.88 (61.69 kg, 157.48 cm) br2 05:35 Pain Scale: Adult br2 [place] Coma Score: 06:00 Eye Response: spontaneous(4). Motor Response: obeys commands(6). Verbal Response: dd2 oriented(5). Total: 15. ED Course: 05:12 Patient arrived in ED. ec2 05:30 Missed attempt(s): 22 gauge in left in right antecubital area. Bleeding controlled, dd2 band aid applied, catheter tip intact. 05:37 Triage completed. br2 05:37 Arm band placed on. br2 05:38 Christopher Severino MD is Attending Physician. ec2 06:00 Patient has correct armband on for positive identification. Bed in low position. Call dd2 light in reach. Side rails up X 1. Client placed on continuous cardiac and pulse oximetry monitoring. NIBP monitoring applied. Door closed. Noise minimized. Verbal reassurance given. 06:00 Patient maintains SpO2 saturation greater than 95% on room air. dd2 06:15 Missed attempt(s): 22 gauge in left antecubital area. Bleeding controlled, band aid dd2 applied, catheter tip intact. 06:30 CT Abd/Pelvis - Without Contrast In Process Unspecified. EDMS 06:32 JOSE ENRIQUE LIM, RN is Primary Nurse. dd2 06:52 No provider procedures requiring assistance completed. dd2 07:07 Attending Physician role handed off by Christopher Severino MD ms3 07:07 Tre Ruano DO is Attending Physician. ms3 07:08 Fernando Howell, INOCENTE is Primary Nurse. bp 08:45 Patient did not have IV access during this emergency room visit. bp Administered Medications: No medications were administered Medication: 06:00 VIS not applicable for this client. dd2 Outcome: 08:29 Discharge ordered by . ms3 08:45 Discharged to home ambulatory, bp 08:45 Condition: stable 08:45 Discharge instructions given to patient, Instructed on discharge instructions, follow up and referral plans. Demonstrated understanding of instructions, follow-up care, 08:46 Patient left the ED. bp Signatures: Dispatcher [employer] EDMS Fernando Howell, RN RN bp Tre Ruano DO DO ms3 Christopher Severino MD MD ec2 Hafas Roger RN RN br2 DAVIS, DIANA, RN RN dd2
--- NOTE | 2024-03-26 08:29 | EDPHYS ---
Physician Documentation [facility] Name: Lilly Amaro Age: 48 yrs Sex: Female : 1975 Arrival Date: 03/26/2024 Time: 05:07 Bed 18 Private MD: ED Physician Tre Ruano HPI: 03/26 06:13 This 48 yrs old Female presents to ER via Ambulatory with complaints of ec2 Abdominal Pain. 06:13 Patient arrives today for evaluation of abdominal pain. Patient reports left-sided ec2 abdominal painlower abdominal pain with associated nausea. Reports decreased p.o. intake. Patient reports increased urinary frequency as well.. Historical: - Allergies: 05:37 Benadryl IV; br2 05:37 Iodinated Contrast Media - IV Dye; br2 - PMHx: 05:37 DVT; Hypertension; only having one fuctioning kidney (PVCs); PVCs; br2 - Immunization history:: Adult Immunizations up to date. - Infectious Disease History:: Denies. - Social history:: Smoking status: Patient/guardian denies using tobacco. ROS: 06:13 Constitutional: as per hpi ec2 Exam: 06:13 Constitutional: GEN: NAD Head: atraumatic Eyes: EOMI Ears: External ears are ec2 normal. CV: regular rate LUNGS: no respiratory distress ABD: non-distended, soft, generally tender in the lower abdomen, no guarding or rigid SKIN: no evidence of rashes MSK: no evidence of trauma Vital Signs: 05:35 BP 141 / 70; Pulse 91; Resp 18; Temp 97.7(O); Pulse Ox 100% on R/A; Weight 61.69 kg; br2 Height 5 ft. 2 in. ; Pain 5/10; 08:46 BP 137 / 75; Pulse 81; Resp 16; Pulse Ox 100% ; bp 05:35 Body Mass Index 24.88 (61.69 kg, 157.48 cm) br2 05:35 Pain Scale: Adult br2 [place] Coma Score: 06:00 Eye Response: spontaneous(4). Motor Response: obeys commands(6). Verbal Response: dd2 oriented(5). Total: 15. MDM: 05:43 Medical Screening Exam initiated ec2 06:13 Data reviewed: vital signs, nurses notes. ED course: Patient arrives today for lower ec2 abdominal pain for examination yields abdominal findings as above. Will obtain lab work, urine studies, CT imaging. . 06:53 Transition of care: After a detail discussion of the patient's case, care is ec2 transferred to Tre Ruano DO. ED course: CT abdomen pelvis shows left-sided hydronephrosis consistent with chronic UPJ obstruction. Will sign patient out to oncoming physician with pending lab work, urine studies and reassessment.. 07:07 Transition of care: Care assumed from Christopher Severino MD. ms3 08:34 ED course: Patient has decided to refuse blood draw. At this time, I reevaluated the ms3 patient and discussed the following: a. Capacity: The patient has the capacity to communicate, understand information, and logically process the decision making process. b. Communication of risks: At bedside, I discussed potential risks, outcomes, and alternative approaches in a patientcentered manner. The patient was informed of the specific risks of missed diagnosis, including worsening condition and . The patient understands that they are welcome to return at any time to complete the workup. Patient is discharged from my care with informed refusal.. 08:35 Differential diagnosis: non-specific abd pain, urinary tract infection, Nephrolithiasis.ms3 08:35 I considered the following discharge prescriptions or medication management in the ms3 emergency department Medications were administered in the Emergency Department. See MAR. Counseling: I had a detailed discussion with the patient and/or guardian regarding the historical points, exam findings, and any diagnostic results supporting the discharge/admit diagnosis, lab results, radiology results, the need for outpatient follow up, to return to the emergency department if symptoms worsen or persist or if there are any questions or concerns that arise at home. Refusal of service: The patient/guardian displays adequate decision making capability and despite a detailed discussion of alternatives, benefits, risks, and consequences refuses: all lab tests. ED course: Discussed urinalysis and CT abdomen and pelvis without contrast results with patient. Patient declines blood work. Patient to follow-up with urology in 2 days. All questions were answered. Return precautions discussed include worsening symptoms, or any other concerns. On reevaluation patient is alert and oriented x 4, no apparent distress, nontoxic-appearing, ambulatory in the emergency department, speaking full sentences.. 02/11 05:43 Order name: Urinalysis w/ reflexes; Complete Time: 08:28 ec2 03/26 06:08 Order name: CT Abd/Pelvis - Without Contrast; Complete Time: 07:58 ec2 Administered Medications: No medications were administered Disposition Summary: 03/26/24 08:29 Discharge Ordered Notes: Location: Home ms3 Condition: Stable ms3 Diagnosis - Lower abdominal pain, unspecified ms3 - Other hydronephrosis ms3 Followup: ms3 - With: Private Physician - When: 2 - 3 days - Reason: Recheck today's complaints Discharge Instructions: - Discharge Summary Sheet ms3 - Abdominal Pain, Adult ms3 Forms: - Medication Reconciliation Form ms3 - Antibiotic Education ms3 - Prescription Opioid Use ms3 - Patient Portal Instructions ms3 - Leadership Thank You Letter ms3 Signatures: Dispatcher [employer] Tre Palma DO DO ms3 Christopher Severino MD MD ec2 Hafsa Roger RN RN br2
[2024-03-26 11:10] VITALS: TEMP 97.7; O2SAT 100
[2024-03-26 11:11] VITALS: BP 137/75
== END 2024-03-26 08:46 | disposition home or self-care (01) ==
LOC: ER 05:07
DX: N13.39 Other hydronephrosis (principal)
CPT/HCPCS: 36415; 74176; 81001

== ENCOUNTER 2024-06-25 11:16 | Emergency (ER) | payer OTHER ==
[2024-06-25] MEDS ORDERED: dexAMETHasone 10 MG/ML VIAL ONE (11:57)
[2024-06-25] MEDS ORDERED: NA CHLORIDE 0.9% 1,000 ML ONE (11:57)
[2024-06-25] MEDS ORDERED: ONDANSETRON 4 MG/2 ML VIAL ONE (11:57)
[2024-06-25] MEDS ORDERED: MORPHINE 2 MG/ML SYR ONE ×2 (11:57→14:45)
[2024-06-25 12:01] LABS: Absolute Basophils 0.1 K/uL (0-0.5); Absolute Eosinophils 0.2 K/uL (0-0.5); Absolute Monocytes 0.7 K/uL (0.1-1.3); Absolute Neutrophil 6.5 K/uL (1.8-8.0); Basophils % 0.6 % (0-1.3); Eosinophils % 2.5 % (0-4.4); Hematocrit 41.3 % (36.0-45.0); Hemoglobin 14.3 g/dL (12.0-15.0); Lymphocytes % 12.3 % (15.3-44.8); MCH 29.9 pg (27.0-35.0); MCHC 34.5 g/dL (32.0-36.0); MCV 86.7 fL (80-100); MPV 8.5 fL (7.6-11.3); Neutrophils % 76.6 % (41.7-73.7); Nucleated Red Blood Cells % 0.1 % (0-0); Platelets 235 thou/uL (152-406); RBC Red Blood Cell Count 4.77 M/uL (3.86-4.86); Red Cell Distribution Width 12.9 % (12.1-15.2)
[2024-06-25 12:10] LABS: PT Prothrombin Time 10.3 SECONDS (10-13.0); Protime INR 0.9
[2024-06-25 12:20] LABS: Anion Gap 8.2 mEq/L (5.0-15.0); Potassium 4.2 mEq/L (3.5-5.1)
--- NOTE | 2024-06-25 12:35 | RAD REPORT ---
EXAM: CT brain without contrast HISTORY: Headache COMPARISON: 2023 TECHNIQUE: Multiple contiguous axial images were obtained and a CT of the brain without contrast.. Sagittal and coronal reconstruction performed. Automated exposure control, adjustment of the mA and/or kV according to patient size, and/or iterative reconstruction. Unless otherwise specified, incidental f indings do not require dedicated imaging follow-up FINDINGS: An intracranial bleed is not seen Ventricles are normal caliber No extra-axial fluid collection noted No significant hypodensity within the brain No fluid within the visualized sinuses or mastoids noted. IMPRESSION: No acute intracranial abnormality noted. If the patient continues to have symptoms to suggest an acute intracranial abnormality then MRI of th e brain would be recommended.
--- NOTE | 2024-06-25 16:13 | RAD REPORT ---
EXAMINATION: Brain Wo Cont CLINICAL INDICATION: Female, 48 years old. HEADACHE TECHNIQUE: Multiplanar multisequence MR images of the brain were obtained without intravenous contras t. Unless otherwise specified, incidental findings do not require dedicated imaging follow-up. [id number]. COMPARISON: 06/25/2024 FINDINGS: INTRACRANIAL: No acute infarct identified. No significant mass effect or midline shift.No hydrocepha robinson. No significant white matter disease. VASCULATURE: Normal signal voids in the larger intracranial arteries and dural venous sinuses. SINUSES: The paranasal sinuses are predominantly clear.No mastoid effusions. BONE: The marrow signal pattern is within normal limits. IMPRESSION: No acute intracranial abnormality. Specifically, no evidence of acute infarct.
--- NOTE | 2024-06-25 16:20 | ER ---
Nurse's Notes [facility] Name: Lilly Amaro Age: 48 yrs Sex: Female : 1975 Arrival Date: 06/25/2024 Time: 11:16 Bed 13 Private MD: Diagnosis: Headache Presentation: 06/25 11:28 Chief complaint: Patient states: headache since June 15 , has had similar issue for a iw few years , it happens during intimacy and normally eases up but has not gone away. Coronavirus screen: At this time, the client does not indicate any symptoms associated with coronavirus-19. Ebola Screen: No symptoms or risks identified at this time. Initial Sepsis Screen: Does the patient meet any 2 criteria? No. Patient's initial sepsis screen is negative. Does the patient have a suspected source of infection? No. Patient's initial sepsis screen is negative. Risk Assessment: Do you want to hurt yourself or someone else? Patient reports no desire to harm self or others. Onset of symptoms was June 15, 2024. 11:28 Method Of Arrival: Ambulatory iw 11:28 Acuity: THEO 3 iw Triage Assessment: 16:42 Headache History: The patient has had previous headaches and this one is similar to me1 previous episodes. [employer]: 16:42 LMP N/A - Irregular menses, Not me1 Historical: - Allergies: 11:30 Benadryl IV; iw 11:30 Iodinated Contrast Media - IV Dye; iw - PMHx: 11:30 DVT; Hypertension; only having one fuctioning kidney; PVCs; iw - Immunization history:: Adult Immunizations up to date. - Infectious Disease History:: Denies. - Family history:: not pertinent. - Social history:: Smoking status: Patient denies any tobacco usage or history of. - Hospitalizations: : No recent hospitalization is reported. Screenin:40 [facility] ED Fall Risk Assessment (Adult) History of falling in the last 3 months, me1 including since admission No falls in past 3 months (0 pts) Confusion or Disorientation No (0 pts) Intoxicated or Sedated No (0 pts) Impaired Gait No (0 pts) Mobility Assist Device Used No (0 pt) Altered Elimination No (0 pt) Score/Fall Risk Level 0 - 2 = Low Risk Maintained a safe environment, Provided non-skid footwear, Hourly rounding (assess needs \T\ fall precautionary measures) done. Abuse screen: Denies threats or abuse. Nutritional screening: No deficits noted. Tuberculosis screening: No symptoms or risk factors identified. Assessment: 11:40 General: Appears uncomfortable, well groomed, well developed, well nourished, Behavior me1 is calm, cooperative, appropriate for age, Reports headache since June 15 , has had similar issue for a few years , it happens during intimacy and normally eases up but has not gone away. Pain: Complains of pain in head Pain does not radiate. Pain currently is 10 out of 10 on a pain scale. Quality of pain is described as aching, Pain began June 15 Is continuous. Neuro: Level of Consciousness is awake, alert, obeys commands, Oriented to person, place, time, situation, Appropriate for age. Neuro: Reports headache. Cardiovascular: Patient's skin is warm and dry. Respiratory: Airway is patent Respiratory effort is even, unlabored, Respiratory pattern is regular, symmetrical. GI: No signs and/or symptoms were reported involving the gastrointestinal system. : No signs and/or symptoms were reported regarding the genitourinary system. EENT: No signs and/or symptoms were reported regarding the EENT system. Derm: Skin is intact, is healthy with good turgor, Skin is pink, warm \T\ dry. Musculoskeletal: No signs and/or symptoms reported regarding the musculoskeletal system. Vital Signs: 11:28 BP 170 / 87; Pulse 105; Resp 18; Temp 97.9; Pulse Ox 100% on R/A; Pain 10/10; iw 12:00 BP 138 / 75; Pulse 99; Resp 15; Pulse Ox 100% ; me1 13:00 BP 147 / 78; Pulse 96; Resp 16; Pulse Ox 99% ; me1 14:00 BP 127 / 80; Pulse 95; Resp 16; Pulse Ox 99% ; me1 14:04 Pain 7/10; me1 15:00 BP 164 / 92; Pulse 105; Resp 16; Pulse Ox 100% ; me1 16:00 BP 138 / 84; Pulse 93; Resp 17; Temp 98.4; Pulse Ox 100% ; me1 16:36 Pain 5/10; me1 11:28 Pain Scale: Adult iw 14:04 Pain Scale: Adult me1 16:36 Pain Scale: Adult me1 [place] Coma Score: 16:18 Eye Response: spontaneous(4). Motor Response: obeys commands(6). Verbal Response: rn oriented(5). Total: 15. ED Course: 11:19 Patient arrived in ED. gl 11:19 Mikel Haney MD is Attending Physician. rn 11:30 Triage completed. iw 11:30 Arm band placed on. iw 11:38 Marissa Cary, RN is Primary Nurse. me1 11:40 Patient has correct armband on for positive identification. Bed in low position. Call me1 light in reach. Side rails up X2. Provided Education on: POC. Verbalized understanding.. Client placed on continuous cardiac and pulse oximetry monitoring. NIBP monitoring applied. Pulse ox on. NIBP on. 11:40 No provider procedures requiring assistance completed. me1 12:05 Initial lab(s) drawn, by me, sent to lab. Inserted saline lock: 22 gauge in right me1 antecubital area, using aseptic technique. 12:23 CT Head Brain wo Cont In Process Unspecified. EDMS 15:56 Brain Wo Cont MRI In Process Unspecified. EDMS 16:19 Musa Hernandez MD is Referral Physician. rn 16:42 IV discontinued, intact, bleeding controlled, No redness/swelling at site. Pressure me1 dressing applied. Administered Medications: 12:06 Drug: NS 0.9% IV 1000 ml IV at 1000 ml once; to be given as a bolus over 60 minutes me1 Route: IV; Rate: 1000 ml; Site: right antecubital; 14:04 Follow up: Response: No adverse reaction; IV Status: Completed infusion; IV Intake: me1 1000ml 12:06 Drug: Decadron - Dexamethasone IVP 10 mg IVP once Route: IVP; Site: right antecubital; me1 14:04 Follow up: Response: No adverse reaction me1 12:06 Drug: morphine IVP or IV 2 mg IVP once over 4 mins Route: IVP; Infused Over: 4 mins; ar1 Site: right antecubital; 14:04 Follow up: Pain 7/10 Adult; Response: No adverse reaction; Pain is decreased me1 12:06 Drug: Ondansetron IVP 4 mg IVP once; over 2 minutes Route: IVP; Site: right antecubital;me1 14:04 Follow up: Response: No adverse reaction; Nausea is decreased me1 15:00 Drug: morphine IVP or IV 2 mg IVP once over 4 mins Route: IVP; Infused Over: 4 mins; me1 Site: right antecubital; 16:36 Follow up: Pain 5/10 Adult; Response: No adverse reaction; Pain is decreased me1 Medication: 11:40 VIS not applicable for this client. me1 Intake: 14:04 IV: 1000ml; Total: 1000ml. me1 Outcome: 16:19 Discharge ordered by . rn 16:42 Discharged to home ambulatory, me1 16:42 Condition: stable 16:42 Discharge instructions given to patient, Instructed on discharge instructions, follow up and referral plans. Demonstrated understanding of instructions, follow-up care, medications, 16:43 Patient left the ED. me1 Signatures: Dispatcher [employer] Martha Negron RN RN iw Mikel Haney MD MD rn Eddleman, Michelle, RN RN ar1 Lexi Zafar, Reg Reg gl Corrections: (The following items were deleted from the chart) 11:28 11:28 BP 170 / 87; Pulse 105bpm; Resp 18bpm; Pulse Ox 100% RA; Temp 97.9F; iw iw 11:31 11:28 Chief complaint: Patient states: headache since June 15 , has had similar issue iw for a few years , it happens during intimacy iw 11:40 11:28 Chief complaint: Patient states: headache since June 15 , has had similar issue [place] for a few years , it happens during intimacy and normally eases up but has not gone away iw
--- NOTE | 2024-06-25 16:20 | EDPHYS ---
Physician Documentation [facility] Name: Lilly Amaro Age: 48 yrs Sex: Female : 1975 Arrival Date: 06/25/2024 Time: 11:16 Bed 13 Private MD: ED Physician Mikel Haney HPI: 06/25 11:49 This 48 yrs old Female presents to ER via Ambulatory with complaints of Headache. rn 11:49 The patient complains of pain to the top of head and forehead. The patient describes rn the headache as aching, throbbing. Onset: The symptoms/episode began/occurred 2 year(s) ago. The symptoms are alleviated by nothing. the symptoms are aggravated by Sexual activity. Patient reports intermittent headaches for the last 2 years. Patient reports worse during sex. No head injury or trauma. No fever or chills. No focal neurological deficit. No vision changes. Has not seen neurology but prescribed a triptan as well as muscle relaxer by PCP. Outpatient CAT scan ordered for today but they had issues registering for said CT so came here. No chest pain or shortness of breath. Patient reports her blood pressure has been in the 130s systolic lately 90s diastolic.. 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 - Infectious Disease History:: Denies. - Family history:: not pertinent. - Social history:: Smoking status: Patient denies any tobacco usage or history of. - Hospitalizations: : No recent hospitalization is reported. ROS: 11:49 Constitutional: Negative for fever, chills, and weight loss, Neck: Negative for injury, rn pain, and swelling, Cardiovascular: Negative for chest pain, palpitations, and edema, Respiratory: Negative for shortness of breath, cough, wheezing, and pleuritic chest pain, Abdomen/GI: Negative for abdominal pain, nausea, vomiting, diarrhea, and constipation, Back: Negative for injury and pain, MS/Extremity: Negative for injury and deformity, Skin: Negative for injury, rash, and discoloration, Neuro: Positive for headache, negative for focal weakness or numbness. No seizure Exam: 11:49 Constitutional: This is a well developed, well nourished patient who is awake, alert, rn and in no acute distress. Ambulatory to room and triage without assistance Neck: No Meningismus. Cardiovascular: Tachycardic, regular (was crying) Respiratory: Speaking full sentences, unlabored. No increased work of breathing, no retractions or nasal flaring. Skin: Warm and dry, no rashes or lesions MS/ Extremity: Pulses equal, no cyanosis. Neurovascular intact. Full, normal range of motion. Equal circumference. Neuro: Awake and alert, GCS 15, oriented to person, place, time, and situation. Cranial nerves II-XII grossly intact. Motor strength 5/5 in all extremities. Sensory grossly intact. Cerebellar exam normal. Normal gait. Vital Signs: 11:28 BP 170 / 87; Pulse 105; Resp 18; Temp 97.9; Pulse Ox 100% on R/A; Pain 10/10; iw 12:00 BP 138 / 75; Pulse 99; Resp 15; Pulse Ox 100% ; me1 13:00 BP 147 / 78; Pulse 96; Resp 16; Pulse Ox 99% ; me1 14:00 BP 127 / 80; Pulse 95; Resp 16; Pulse Ox 99% ; me1 14:04 Pain 7/10; me1 15:00 BP 164 / 92; Pulse 105; Resp 16; Pulse Ox 100% ; me1 16:00 BP 138 / 84; Pulse 93; Resp 17; Temp 98.4; Pulse Ox 100% ; me1 16:36 Pain 5/10; me1 11:28 Pain Scale: Adult iw 14:04 Pain Scale: Adult me1 16:36 Pain Scale: Adult me1 Kihei Coma Score: 16:18 Eye Response: spontaneous(4). Motor Response: obeys commands(6). Verbal Response: rn oriented(5). Total: 15. MDM: 11:19 Medical Screening Exam initiated rn 16:18 Differential diagnosis: cluster headache, hypertensive headache, intracerebral rn hemorrhage, migraine, neoplasm, tension headache, vasomotor headache. Data reviewed: vital signs, nurses notes, lab test result(s), radiologic studies, CT scan, MRI, and as a result, I will discharge patient. Counseling: I had a detailed discussion with the patient and/or guardian regarding the historical points, exam findings, and any diagnostic results supporting the discharge/admit diagnosis, lab results, radiology results, the need for outpatient follow up, to return to the emergency department if symptoms worsen or persist or if there are any questions or concerns that arise at home. Response to treatment: the patient's symptoms have mildly improved after treatment, and as a result, I will discharge patient. Special discussion: I discussed with the patient/guardian in detail that at this point there is no indication for admission to the hospital. It is understood, however, that if the symptoms persist or worsen the patient needs to return immediately for re-evaluation. 06/25 11:43 Order name: CBC with Diff; Complete Time: 12:38 rn 06/25 11:43 Order name: Basic Metabolic Panel; Complete Time: 12:38 rn 06/25 11:43 Order name: Protime (+inr); Complete Time: 12:38 rn 06/25 11:43 Order name: Ptt, Activated; Complete Time: 12:38 rn 06/25 11:43 Order name: CT Head Brain wo Cont; Complete Time: 12:38 rn 06/25 11:43 Order name: Brain Wo Cont MRI; Complete Time: 16:16 rn 06/25 11:43 Order name: IV Start; Complete Time: 14:06 rn Administered Medications: 12:06 Drug: NS 0.9% IV 1000 ml IV at 1000 ml once; to be given as a bolus over 60 minutes me1 Route: IV; Rate: 1000 ml; Site: right antecubital; 14:04 Follow up: Response: No adverse reaction; IV Status: Completed infusion; IV Intake: me1 1000ml 12:06 Drug: Decadron - Dexamethasone IVP 10 mg IVP once Route: IVP; Site: right antecubital; me1 14:04 Follow up: Response: No adverse reaction me1 12:06 Drug: morphine IVP or IV 2 mg IVP once over 4 mins Route: IVP; Infused Over: 4 mins; me1 Site: right antecubital; 14:04 Follow up: Pain 7/10 Adult; Response: No adverse reaction; Pain is decreased me1 12:06 Drug: Ondansetron IVP 4 mg IVP once; over 2 minutes Route: IVP; Site: right antecubital;me1 14:04 Follow up: Response: No adverse reaction; Nausea is decreased me1 15:00 Drug: morphine IVP or IV 2 mg IVP once over 4 mins Route: IVP; Infused Over: 4 mins; me1 Site: right antecubital; 16:36 Follow up: Pain 5/10 Adult; Response: No adverse reaction; Pain is decreased me1 Disposition Summary: 06/25/24 16:19 Discharge Ordered Notes: Location: Home rn Problem: new rn Symptoms: have improved rn Condition: Stable rn Diagnosis - Headache rn Followup: rn - With: Musa Hernandez MD - When: As needed - Reason: Recheck today's complaints, Re-evaluation by your physician Discharge Instructions: - Discharge Summary Sheet rn - General Headache Without Cause rn - Migraine Headache rn - Hypertension, Adult rn Forms: - Medication Reconciliation Form rn - 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 EDMS EDMS 11:44 11:44 Brain Wo Cont+MRI.RAD.BRZ ordered. EDMS EDMS 11:44 11:44 CBC+H.LAB.BRZ ordered. EDMS EDMS 11:44 11:44 BASIC METABOLIC PANEL+C.LAB.BRZ ordered. EDMS EDMS 11:44 11:44 PROTIME (+INR)+COAG.LAB.BRZ ordered. EDMS EDMS 11:44 11:44 PTT, ACTIVATED+COAG.LAB.BRZ ordered. EDMS EDMS
[2024-06-25 17:30] VITALS: O2SAT 100
[2024-06-25 17:31] VITALS: BP 138/84; TEMP 98.4
== END 2024-06-25 16:43 | disposition home or self-care (01) ==
LOC: ER 11:16
DX: R51.9 Headache, unspecified (principal); I10 Essential (primary) hypertension; Z86.718 Personal history of other venous thrombosis and embolism
CPT/HCPCS: 96361; 85025; 80048; 36415; 85610; 85730; 70450; 70551; 96375; 96374; 99284; J1100; J2270 ×2; J2405; J7030